=== PATIENT | female | born 1945 | race African-American/Black ===

== ENCOUNTER 2019-02-14 11:17 | Inpatient (IN) | payer MEDICARE, MEDICAID ==
[~2019-02-14] VITALS: Ht 165.1 cm; Wt 83.2 kg
[~2019-02-14 11:17] MED LIST: ACETAMINOPHEN650 M2 ORAL; CARAFATE1 GM ORAL; CEFTIN500 MG ORAL; CIPRO500 MG PO; CLONIDINE0.1 MG ORAL; CRANBERRY450 M1 ORAL; DICLOFENAC SOD100 GM TP; DILAUDID2 MG ORAL; DOCUSATE SODIU100 MG ORAL; DURAGESIC1 E3 TDERMAL; FENTANYL1 EAC5 TD; FERROUS SULFAT325 M1 ORAL; FLAGYL375 MG ORAL; GABAPENTIN100 MG ORAL; GABAPENTIN600 MG ORAL; HEPARIN SO5000 UNIT2 SUBQ; HYDRALAZINE HCL25 M1 ORAL; HYDRALAZINE HCL50 MG ORAL; HYDROMORPHO1 MG/1 M4 IVP; IMODIUM2 MG ORAL; LIDOCAINE700 M1 TP; LIDODERM700 M1 TOPIC; LIDODERM700 MG TOPIC; LOSARTAN POTAS100 MG ORAL; LOSARTAN POTASS50 MG ORAL; MAGNESIUM CITR296 M1 PO; MAGNESIUM CITR296 ML ORAL; METAMUCIL FIBE3.4 GM ORAL; MILK OF MA400 MG/51 ORAL; MIRALAX17 G1 ORAL; MIRALAX17 GM ORAL; MOVANTIK25 MG PO; MULTIVITAM9 MG/15 M1 PO; MULTIVITAM9 MG/15 M2 PO; MULTIVITAMINS1 EA13 ORAL; MULTIVITAMINS1 EACH ORAL; MYLANTA30 ML ORAL; NALOXONE H0.4 MG/12 IV; NEURONTIN300 MG ORAL; NITROFURANTOIN100 M2 ORAL; NITROFURANTOIN25 MG PO; NORCO 10-325 T1 EACH PO; NORVASC5 MG ORAL; OS-CAL 500+D C1 EAC1 ORAL; OXYCODONE-ACET1 EAC5 ORAL; PANTOPRAZOLE SO40 MG ORAL; PERCOCET 7.5-31 EACH ORAL; PRO; PROTONIX40 MG ORAL; SENOKOT-S8.6 TAB/50 ORAL
[2019-02-14 11:30] VITALS: BP 163/94
--- NOTE | 2019-02-14 11:30 | NUR ---
ED Nurse Note: pt presents to ED via EMS arrival for a witnessed syncopal episode. RN called SNF that pt came from and she states that pt is usually nonverbal, similar to how she is in ED now. per jaydon pt is less talkative and active than usual.pt has a h/o CVA x 2. VSs Addendum: 02/14/19 at 1205 by QLE syncopal episode was at 0800 this AM. pt comes via BLS from [facility]
[2019-02-14] MEDS ORDERED: HYDRALAZINE HCL50 MG ORAL (11:54)
[2019-02-14] MEDS ORDERED: MIRALAX17 G2 ORAL (11:54)
[2019-02-14] MEDS ORDERED: HYDROCODON-ACE1 EA13 ORAL (11:54)
[2019-02-14] MEDS ORDERED: SENNA8.6 M2 PO (11:54)
[2019-02-14] MEDS ORDERED: CRANBERRY450 M4 PO (11:54)
[2019-02-14] MEDS ORDERED: NORVASC5 MG ORAL (11:54)
[2019-02-14] MEDS ORDERED: COLACE100 MG ORAL (11:54)
[2019-02-14] MEDS ORDERED: ATORVASTATIN CA20 MG ORAL (11:54)
[2019-02-14] MEDS ORDERED: LACTULOSE20 GM/301 ORAL (11:54)
[2019-02-14] MEDS ORDERED: lidoderm patch 5% TOPIC (11:54)
[2019-02-14] MEDS ORDERED: ACETAMINOPHEN325 M1 ORAL (11:54)
[2019-02-14] MEDS ORDERED: FENTANYL TOPIC (11:54)
[2019-02-14] MEDS ORDERED: COZAAR50 MG ORAL (11:54)
[2019-02-14] MEDS ORDERED: ASPIR-LOW81 MG ORAL (11:54)
[2019-02-14] MEDS ORDERED: FERROUS SULFAT325 MG ORAL (11:54)
[2019-02-14] MEDS ORDERED: NEURONTIN600 MG ORAL (11:57)
[2019-02-14] MEDS ORDERED: GABAPENTIN300 MG ORAL (11:57)
[2019-02-14] MEDS ORDERED: MULTIVITAMINS1 EAC8 ORAL (11:57)
--- NOTE | 2019-02-14 12:11 | Diagnostic Imaging Report ---
Indications: Syncope, weakness, witnessed syncopal episode, altered mental status Technique: Spiral acquisitions obtained through the brain. Angled axial and coronal 5 x 5 mm slices were reconstructed. Total dose length product 1489 mGycm. CTDI vol(s) 632 mGy. Dose reduction achieved using automated exposure control Comparison: 07/25/2015 Findings: Again demonstrated is a large area of encephalomalacia involving the left frontal and anterior parietal lobes and extending into the basal ganglia. This results in marked ex vacuo dilatation of the frontal horn and anterior body of the left lateral ventricle. No acute intracranial hemorrhage or edema. No mass effect nor midline shift. Normal infante-white differentiation. Other than the ex vacuo dilatation, ventricles and extra axial CSF spaces are normal for age. The mastoids are clear. The calvarium is intact. Visualized orbits and sinuses are unremarkable. Impression: Large old left frontoparietal infarct Negative for acute intracranial bleed or mass effect Stat code stroke findings phoned to Dr. Warren in the emergency room at the time of interpretation The CT scanner at [facility] is accredited by the [employer] and the scans are performed using protocols designed to limit radiation exposure to as low as reasonably achievable to attain images of sufficient resolution adequate for diagnostic evaluation.
[2019-02-14 12:17] LABS: BASOPHILS % (AUTO) 1.2 % (0.0-2.0); EOSINOPHILS % (AUTO) 1.3 % (0.0-3.0); HEMOGLOBIN 12.6 G/DL (12.0-16.0); LYMPHOCYTES % (AUTO) 25.6 % (20.0-45.0); MEAN CORPUSCULAR VOLUME 92 FL (80-99); MONOCYTES % (AUTO) 5.4 % (1.0-10.0); NEUTROPHILS % (AUTO) 66.5 % (45.0-75.0); PLATELET COUNT 436 K/UL (150-450); RED BLOOD COUNT 4.22 M/UL (4.20-5.40); RED CELL DISTRIBUTION WIDTH 13.6 % (11.6-14.8); WHITE BLOOD COUNT 11.4 K/UL (4.8-10.8)
--- NOTE | 2019-02-14 12:20 | NUR ---
ED Nurse Note: pt has 3 lidocaine patches noted on her right leg and one 75 mcg fentanyl patch on her left chest
--- NOTE | 2019-02-14 12:22 | NUR ---
ED Nurse Note: contact infomation for pt's family: Daughter Luh: [phone] grandson Jag: [phone] grandson Shaw" [phone] grandson Jag was at bedside but has left. other family planning to be here soon
[2019-02-14 12:27] LABS: ANION GAP 7 mmol/L (5-15); BLOOD UREA NITROGEN 14 mg/dL (7-18); CALCIUM 9.5 MG/DL (8.5-10.1); CARBON DIOXIDE 28 MMOL/L (21-32); CHLORIDE 105 MMOL/L (98-107); CREATININE 0.5 MG/DL (0.55-1.30); INR 0.9 (0.9-1.1); POTASSIUM 4.5 MMOL/L (3.5-5.1); SODIUM 140 MMOL/L (136-145)
[2019-02-14 12:32] LABS: ALANINE AMINOTRANSFERASE 18 U/L (12-78); ALBUMIN 3.4 G/DL (3.4-5.0); ALBUMIN/GLOBULIN RATIO 0.9 (1.0-2.7); ALKALINE PHOSPHATASE 72 U/L (46-116); ASPARTATE AMINO TRANSFERASE 17 U/L (15-37); BILIRUBIN,TOTAL 0.5 MG/DL (0.2-1.0); CHOLESTEROL 180 MG/DL (< 200); HDL CHOLESTEROL 57 MG/DL (40-60); TRIGLYCERIDES 216 MG/DL (30-150)
[2019-02-14 13:01] LABS: APPEARANCE,URINE CLOUDY; BILIRUBIN, URINE NEGATIVE (NEGATIVE); COLOR,URINE PALE YELLOW; GLUCOSE, URINE (UA) NEGATIVE (NEGATIVE); KETONES,URINE NEGATIVE (NEGATIVE); LEUKOCYTE ESTERASE ,URINE 3+ (NEGATIVE); NITRITE,URINE NEGATIVE (NEGATIVE); PH,URINE 8 (4.5-8.0); PROTEIN,URINE 3+ (NEGATIVE); UROBILINOGEN,URINE NORMAL MG/DL (0.0-1.0)
[2019-02-14 13:30] VITALS: BP 140/82
[2019-02-14] MEDS ORDERED: Tylenol #3 tab (300mg/30mg) ORAL ONE (14:00)
--- NOTE | 2019-02-14 14:20 | NUR ---
ED Nurse Note: swabbed pt for MRSA, CRE & VRE. skin is intact. pt is stable, HR 79, SpO2: 98% on room air
--- NOTE | 2019-02-14 14:23 | Emergency Room Report ---
History of Present Illness General Chief Complaint: Syncope Source: Patient, Family Member, Medical Record Present Illness HPI 73-year-old female presents ED for evaluation. Br[facility] EMS from [facility]. Had witnessed syncopal episode today. No fall or head injury. Occurred around 8 AM today. Family at bedside states that patient is also complaining of some numbness to the left leg. History of CVA with right- sided residual deficit. Patient denies any arm numbness or weakness. Denies any chest pain or shortness of breath. Denies fevers or chills. No other aggravating relieving factors. Denies any other associated symptoms Allergies: Coded Allergies: DICLOFENAC SODIUM (Verified Allergy, Unknown, 07/27/12) PENICILLINS (Verified Allergy, Unknown, 07/15/11) Patient History Past Medical History: GERD, CVA/TIA, dementia Past Surgical History: none Pertinent Family History: none Social History: Denies: smoking, alcohol use, drug use Last Menstrual Period: na Now: No Immunizations: UTD Reviewed Nursing Documentation: PMH: Agreed; PSxH: Agreed Nursing Documentation-PMH Past Medical History: No History, Except For Hx Cardiac Problems: Yes - CHRONIC PAIN, PVD Hx Hypertension: Yes Hx Pacemaker: No Hx Asthma: Yes Hx COPD: No Hx Diabetes: No Hx Cancer: No Hx Gastrointestinal Problems: Yes - ESOPHAGIAL REFLUX, pyleonephritis Hx Neurological Problems: Yes Hx Cerebrovascular Accident: Yes Hx Transient Ischemic Attacks: No Hx Dementia: Yes - SLIGHT Hx Alzheimer's Disease: No Hx Parkinson's Disease: No Hx Meningitis: No Hx Encephalitis: No Hx Seizures: No Hx Epilepsy: No Hx Multiple Sclerosis: No Hx Cerebral Palsy: No Hx Amyotrophic Lat Sclerosis: No Hx [place] Syndrome: No Hx Paralysis: Yes - RIGHT SIDE SECONDARY TO CVA Hx Peripheral Neuropathy: No Hx Spinal Cord Injury: No Hx Head Trauma: No Hx Traumatic Brain Injury: No Hx Memory Loss: No Hx Concentration Difficulty: Yes Hx Tremors: No Hx Vertigo: No Hx Dizziness: No Hx Syncope: No Hx Headaches: Yes Hx Aphasia: Yes Hx Dysphasia: Yes Hx Numbness: Yes - RIGHT SIDE POST CVA Hx Weakness: Yes Hx Fatigue: Yes - GENERALIZED Hx Neurologic Surgery: No Hx Brain Shunt: No Review of Systems All Other Systems: negative except mentioned in HPI Physical Exam Vital Signs Date Time Temp Pulse Resp B/P (MAP) Pulse Ox O2 Delivery O2 Flow Rate FiO2 02/14/19 11:18 99.0 84 18 151/77 (101) 98 Room Air Sp02 EP Interpretation: reviewed, normal General Appearance: no apparent distress, alert Head: normocephalic, atraumatic Eyes: bilateral eye normal inspection, bilateral eye PERRL ENT: hearing grossly normal, normal pharynx, no angioedema, normal voice Neck: full range of motion, supple/symm/no masses Respiratory: chest non-tender, lungs clear, normal breath sounds, speaking full sentences Cardiovascular #1: regular rate, rhythm, no edema Cardiovascular #2: 2+ carotid (R), 2+ carotid (L), 2+ radial (R), 2+ radial (L) , 2+ dorsalis pedis (R), 2+ dorsalis pedis (L) Gastrointestinal: normal bowel sounds, non tender, soft, non-distended, no guarding, no rebound Rectal: deferred Genitourinary: normal inspection, no CVA tenderness Musculoskeletal: back normal, gait/station normal, normal range of motion Neurologic: alert, oriented x3, responsive, motor strength/tone normal, sensory intact, speech normal, other - existing R sided deficit Psychiatric: other - dementia Reflexes: 3+ bicep (R), 3+ bicep (L), 3+ tricep (R), 3+ tricep (L), 3+ knee (R) , 3+ knee (L) Skin: other - see nursing skin notes Lymphatic: no adenopathy Medical Decision Making Diagnostic Impression: Primary Impression: Syncope Qualified Codes: R55 - Syncope and collapse Additional Impression: UTI (urinary tract infection) Qualified Codes: N39.0 - Urinary tract infection, site not specified ER Course Hospital Course 73 yo F presents to ED s/p syncope episode Differential diagnoses include: CO/unstable angina, arrythmia, dehydration, CVA/ TIA Clinical course Patient placed on stretcher. on court monitor. After initial history and physical I ordered labs, EKG, IVFs, CT Brain labs reviewed- no leukocytosis, hemoglobin/hematocrit ok, electrolytes okay, troponins 0.047, UA + bacteria EKG- NSR no acute ischemic changes itnerpreted by nv CT brain- large area of encephalomalacia. no acute process There was concern whether patient may have even had a seizure according to the family. No focal deficits. No seizure history. Family was also concerned whether patient may have had a stroke. Patient has already right-sided large deficit pre-existing. Patient is able to move her left lower extremity. No deficit in her left upper extremity. I do not suspect stroke at this time. Given antibiotics. Given IV Keppra. Case discussed with Dr. Villalobos and he agreed to accept the patient to his service for further care and support I. I feel this is a highly complex case requiring extensive working including EKG/Rhythm strip, Xray/CT/US, Blood/urine lab work, repeat exams while in ED, and administration of strong opiates/narcotics for pain control, admission to hospital or close patient follow up. Diagnosis - syncope, UTI admitted to telemetry in serious condition Labs Test 02/14/19 12:00 02/14/19 12:19 White Blood Count 11.4 K/UL (4.8-10.8) Red Blood Count 4.22 M/UL (4.20-5.40) Hemoglobin 12.6 G/DL (12.0-16.0) Hematocrit 39.0 % (37.0-47.0) Mean Corpuscular Volume 92 FL (80-99) Mean Corpuscular Hemoglobin 29.7 PG (27.0-31.0) Mean Corpuscular Hemoglobin Concent 32.2 G/DL (32.0-36.0) Red Cell Distribution Width 13.6 % (11.6-14.8) Platelet Count 436 K/UL (150-450) Mean Platelet Volume 4.3 FL (6.5-10.1) Neutrophils (%) (Auto) 66.5 % (45.0-75.0) Lymphocytes (%) (Auto) 25.6 % (20.0-45.0) Monocytes (%) (Auto) 5.4 % (1.0-10.0) Eosinophils (%) (Auto) 1.3 % (0.0-3.0) Basophils (%) (Auto) 1.2 % (0.0-2.0) Prothrombin Time 9.6 SEC (9.30-11.50) Prothromb Time International Ratio 0.9 (0.9-1.1) Activated Partial Thromboplast Time 28 SEC (23-33) Sodium Level 140 MMOL/L (136-145) Potassium Level 4.5 MMOL/L (3.5-5.1) Chloride Level 105 MMOL/L (98-107) Carbon Dioxide Level 28 MMOL/L (21-32) Anion Gap 7 mmol/L (5-15) Blood Urea Nitrogen 14 mg/dL (7-18) Creatinine 0.5 MG/DL (0.55-1.30) Estimat Glomerular Filtration Rate mL/min (>60) Glucose Level 99 MG/DL (74-106) Calcium Level 9.5 MG/DL (8.5-10.1) Total Bilirubin 0.5 MG/DL (0.2-1.0) Aspartate Amino Transf (AST/SGOT) 17 U/L (15-37) Alanine Aminotransferase (ALT/SGPT) 18 U/L (12-78) Alkaline Phosphatase 72 U/L (46-116) Troponin I 0.047 ng/mL (0.000-0.056) Total Protein 7.1 G/DL (6.4-8.2) Albumin 3.4 G/DL (3.4-5.0) Globulin 3.7 g/dL Albumin/Globulin Ratio 0.9 (1.0-2.7) Triglycerides Level 216 MG/DL (30-150) Cholesterol Level 180 MG/DL (< 200) LDL Cholesterol 89 mg/dL (<100) HDL Cholesterol 57 MG/DL (40-60) Cholesterol/HDL Ratio 3.2 (3.3-4.4) Urine Color Pale yellow Urine Appearance Cloudy Urine pH 8 (4.5-8.0) Urine Specific [place] 1.010 (1.005-1.035) Urine Protein 3+ (NEGATIVE) Urine Glucose (UA) Negative (NEGATIVE) Urine Ketones Negative (NEGATIVE) Urine Blood 4+ (NEGATIVE) Urine Nitrite Negative (NEGATIVE) Urine Bilirubin Negative (NEGATIVE) Urine Urobilinogen Normal MG/DL (0.0-1.0) Urine Leukocyte Esterase 3+ (NEGATIVE) Urine RBC 5-10 /HPF (0 - 2) Urine WBC 30-40 /HPF (0 - 2) Urine Squamous Epithelial Cells Few /LPF (NONE/OCC) Urine Bacteria Many /HPF (NONE) Magnesium Level 2.1 MG/DL (1.8-2.4) Urine Opiates Screen Negative (NEGATIVE) Urine Barbiturates Screen Negative (NEGATIVE) Phencyclidine (PCP) Screen Negative (NEGATIVE) Urine Amphetamines Screen Negative (NEGATIVE) Urine Benzodiazepines Screen Negative (NEGATIVE) Urine Cocaine Screen Negative (NEGATIVE) Urine Marijuana (THC) Screen Negative (NEGATIVE) EKG Diagnostic Results Rate: normal Rhythm: NSR ST Segments: no acute changes ASA given to the pt in ED: No Rhythm Strip Diag. Results EP Interpretation: yes Rhythm: NSR, no PVC's, no ectopy CT/MRI/US Diagnostic Results CT/MRI/US Diagnostic Results : Imaging Test Ordered: CT head Impression Comparison: 07/25/2015 Findings: Again demonstrated is a large area of encephalomalacia involving the left frontal and anterior parietal lobes and extending into the basal ganglia. This results in marked ex vacuo dilatation of the frontal horn and anterior body of the left lateral ventricle. No acute intracranial hemorrhage or edema. No mass effect nor midline shift. Normal infante-white differentiation. Other than the ex vacuo dilatation, ventricles and extra axial CSF spaces are normal for age. The mastoids are clear. The calvarium is intact. Visualized orbits and sinuses are unremarkable. Impression: Large old left frontoparietal infarct Negative for acute intracranial bleed or mass effect Last Vital Signs Date Time Temp Pulse Resp B/P (MAP) Pulse Ox O2 Delivery O2 Flow Rate FiO2 02/14/19 11:18 99.0 84 18 151/77 (101) 98 Room Air Status: improved Disposition: ADMITTED INPATIENT Condition: Serious Referrals: Sami Deutsch MD (PCP) Duane Warren MD Feb 14, 2019 14:23
[2019-02-14] MEDS ORDERED: levETIRAcetam 1,000mg/NS100ml 100 ML IVPB ONE (14:30)
[2019-02-14 14:58] VITALS: BP 134/53
--- NOTE | 2019-02-14 15:00 | NUR ---
ED Nurse Note: called and gave report to COLLIN Martines
[2019-02-14 15:41] VITALS: BP 126/72
--- NOTE | 2019-02-14 15:45 | NUR ---
NURSE NOTES: Report received from COLLIN Frances. Patient transferred safely to floor from ED. Patient only has head scarf as a belonging. residential monitor applied and patient is sinus rhythm. Pt shows no signs of distress. Patient is aphasic, but oriented to self, purpose, and place. She is forgetful when it comes to time. Patient denies pain/SOB. Respirations are even and unlabored on room air. IV site is intact. Bed is at lowest position, brakes engaged, siderails x3, bed alarm on, and call light within reach. Pt is in stable condition. Spoke with Dr. Deutsch at bedside. He said he will put in orders shortly.
--- NOTE | 2019-02-14 15:52 | History & Physical ---
History and Physical History & Physicial Syncope vs Sz UTI s/p CVA right gloria Large old left frontoparietal infarct obesity chronic pain EEG Carotid duplex Echo Monitor per elias # [id number] Sami Deutsch MD Feb 14, 2019 15:52
[2019-02-14] MEDS: Docusate 100mg cap ORAL SCH (17:26)
[2019-02-14] MEDS: Nitroglycerin Patch 0.4mg TDERMAL SCH (17:26)
--- NOTE | 2019-02-14 19:12 | NUR ---
HAND-OFF: Report given to Kacey Dumont RN. Pt is in stable condition; plan of care endorsed.
--- NOTE | 2019-02-14 19:51 | NUR ---
NURSE NOTES: Received patient from COLLIN Martines, patient in stable condition, AOx1, not able to make needs known, IV site on left FA g22,asymptomatic, patent, bed low&locked, side rails upx3, call light within reach, will continue to monitor and reassess
[2019-02-14 20:00] VITALS: BP 151/76
--- NOTE | 2019-02-14 20:53 | Cardiology Progress Note ---
Assessment/Plan Assessment/Plan syncope? seizure cva hx min abn trop full note to follow orthostatic vital ek echo trop Objective Last 24 Hour Vital Signs Date Time Temp Pulse Resp B/P (MAP) Pulse Ox O2 Delivery O2 Flow Rate FiO2 02/14/19 17:26 125/81 02/14/19 16:55 Room Air 02/14/19 15:53 80 02/14/19 15:41 97.0 77 18 126/72 (90) 100 02/14/19 14:58 99.0 71 18 134/53 98 Room Air 02/14/19 13:30 79 140/82 97 02/14/19 11:30 99.0 83 163/94 98 Room Air 02/14/19 11:18 99.0 84 18 151/77 (101) 98 Room Air Laboratory Tests Test 02/14/19 12:00 02/14/19 12:19 02/14/19 12:30 White Blood Count 11.4 K/UL (4.8-10.8) H Red Blood Count 4.22 M/UL (4.20-5.40) Hemoglobin 12.6 G/DL (12.0-16.0) Hematocrit 39.0 % (37.0-47.0) Mean Corpuscular Volume 92 FL (80-99) Mean Corpuscular Hemoglobin 29.7 PG (27.0-31.0) Mean Corpuscular Hemoglobin Concent 32.2 G/DL (32.0-36.0) Red Cell Distribution Width 13.6 % (11.6-14.8) Platelet Count 436 K/UL (150-450) Mean Platelet Volume 4.3 FL (6.5-10.1) L Neutrophils (%) (Auto) 66.5 % (45.0-75.0) Lymphocytes (%) (Auto) 25.6 % (20.0-45.0) Monocytes (%) (Auto) 5.4 % (1.0-10.0) Eosinophils (%) (Auto) 1.3 % (0.0-3.0) Basophils (%) (Auto) 1.2 % (0.0-2.0) Prothrombin Time 9.6 SEC (9.30-11.50) Prothromb Time International Ratio 0.9 (0.9-1.1) Activated Partial Thromboplast Time 28 SEC (23-33) Sodium Level 140 MMOL/L (136-145) Potassium Level 4.5 MMOL/L (3.5-5.1) Chloride Level 105 MMOL/L (98-107) Carbon Dioxide Level 28 MMOL/L (21-32) Anion Gap 7 mmol/L (5-15) Blood Urea Nitrogen 14 mg/dL (7-18) Creatinine 0.5 MG/DL (0.55-1.30) L Estimat Glomerular Filtration Rate mL/min (>60) Glucose Level 99 MG/DL (74-106) Calcium Level 9.5 MG/DL (8.5-10.1) Total Bilirubin 0.5 MG/DL (0.2-1.0) Aspartate Amino Transf (AST/SGOT) 17 U/L (15-37) Alanine Aminotransferase (ALT/SGPT) 18 U/L (12-78) Alkaline Phosphatase 72 U/L (46-116) Troponin I 0.047 ng/mL (0.000-0.056) Total Protein 7.1 G/DL (6.4-8.2) Albumin 3.4 G/DL (3.4-5.0) Globulin 3.7 g/dL Albumin/Globulin Ratio 0.9 (1.0-2.7) L Triglycerides Level 216 MG/DL (30-150) H Cholesterol Level 180 MG/DL (< 200) LDL Cholesterol 89 mg/dL (<100) HDL Cholesterol 57 MG/DL (40-60) Cholesterol/HDL Ratio 3.2 (3.3-4.4) L Urine Color Pale yellow Urine Appearance Cloudy Urine pH 8 (4.5-8.0) Urine Specific [place] 1.010 (1.005-1.035) Urine Protein 3+ (NEGATIVE) H Urine Glucose (UA) Negative (NEGATIVE) Urine Ketones Negative (NEGATIVE) Urine Blood 4+ (NEGATIVE) H Urine Nitrite Negative (NEGATIVE) Urine Bilirubin Negative (NEGATIVE) Urine Urobilinogen Normal MG/DL (0.0-1.0) Urine Leukocyte Esterase 3+ (NEGATIVE) H Urine RBC 5-10 /HPF (0 - 2) H Urine WBC 30-40 /HPF (0 - 2) H Urine Squamous Epithelial Cells Few /LPF (NONE/OCC) Urine Bacteria Many /HPF (NONE) H Magnesium Level 2.1 MG/DL (1.8-2.4) Urine Opiates Screen Negative (NEGATIVE) Urine Barbiturates Screen Negative (NEGATIVE) Phencyclidine (PCP) Screen Negative (NEGATIVE) Urine Amphetamines Screen Negative (NEGATIVE) Urine Benzodiazepines Screen Negative (NEGATIVE) Urine Cocaine Screen Negative (NEGATIVE) Urine Marijuana (THC) Screen Negative (NEGATIVE) C-Reactive Protein, Quantitative 1.9 mg/dL (0.00-0.90) H Microbiology Date/Time Source Procedure Growth Status 02/14/19 14:22 Rectal Mucosa Received Neymar Simms MD Feb 14, 2019 20:53
--- NOTE | 2019-02-14 21:15 | History and Physical Report ---
DATE OF ADMISSION: 02/14/2019 HISTORY OF PRESENT ILLNESS: The patient is a resident of [facility]. She is 73-year-old female. She is known to me as I see her once a month in the facility. I received a call this morning that the patient had witnessed syncopal episode today. She was apparently unresponsive for over a minute. I received a call at 8 o'clock in the morning. The patient was summoned to come to emergency room here at [facility]. The patient is being admitted for further management. PAST MEDICAL HISTORY: Significant for previous CVA, obesity, chronic pain syndrome, right hemiplegia. The patient is essentially bedridden, also has history of cystitis, and hypertension. The patient has mild cognition decline. MEDICATIONS: List of her medication includes blood pressure medication and pain medication, please refer to the record. PHYSICAL EXAMINATION: GENERAL: When seen in room 219, the patient is afebrile, awake, dysphasic which is not new. VITAL SIGNS: Pulse rate is 77, blood pressure 122/72, respiratory rate 18. HEENT: Head is normocephalic and atraumatic. Sclerae not icteric. NECK: No thyromegaly. Rigid to all directions. HEART: Appears to be regular. LUNGS: Poor inspiratory effort. Decreased breath sounds over the bases. ABDOMEN: Obese, soft. EXTREMITIES: No edema. NEUROLOGIC: The patient has right-sided hemiparesis. Carotid auscultation, no bruit heard. LABORATORY AND DIAGNOSTIC DATA: Triglycerides of 216, the rest of the chemistry is normal. CBC normal with white blood cells of 11.4. Urine toxicology screen is negative. Urinalysis 40 wbc's, 3+ leukocyte esterase. IMPRESSION: 1. Syncope versus seizure. 2. Urinary tract infection. 3. Previous CVA with right as a result of a large old left frontoparietal infarct. 4. Obesity. 5. Chronic pain. PLAN: 1. Neurology and cardiac evaluation. 2. EEG, carotid duplex, and echo. 3. Monitor heart in tele section of the hospital. 4. Keep the blood pressure and electrolytes in check. 5. According to how the patient's condition evolves, we will make the proper changes in our future management. Sami María Elena Deutsch DR: Ruiz JOB#: [id number] CC:
[2019-02-14] MEDS: Heparin 5000 units/ml inj SUBQ SCH (21:16)
[2019-02-14] MEDS: Sennosides 8.6mg tab ORAL SCH (21:17)
[2019-02-14] MEDS: HYDROcodone/Acetamin 10/325 tab ORAL PRN (21:18)
[2019-02-14] MEDS: HydrALAZINE 25mg tab ORAL SCH (21:25)
[2019-02-14] MEDS: Lactulose 20gm/30ml UDC ORAL SCH (21:26)
[2019-02-15] VITALS: BP 111/69
[2019-02-15 04:00] VITALS: BP 133/71
[2019-02-15] MEDS: HydrALAZINE 25mg tab ORAL SCH ×3 (06:26→22:00)
[2019-02-15] MEDS: Lactulose 20gm/30ml UDC ORAL SCH ×3 (06:26→21:14)
[2019-02-15 07:39] LABS: EOSINOPHILS % (AUTO) 1.5 % (0.0-3.0); HEMATOCRIT 39.9 % (37.0-47.0); HEMOGLOBIN 12.8 G/DL (12.0-16.0); LYMPHOCYTES % (AUTO) 20.4 % (20.0-45.0); MEAN CORPUSCULAR VOLUME 93 FL (80-99); MONOCYTES % (AUTO) 6.5 % (1.0-10.0); NEUTROPHILS % (AUTO) 70.6 % (45.0-75.0); PLATELET COUNT 418 K/UL (150-450); RED BLOOD COUNT 4.29 M/UL (4.20-5.40); RED CELL DISTRIBUTION WIDTH 13.5 % (11.6-14.8); WHITE BLOOD COUNT 9.7 K/UL (4.8-10.8)
--- NOTE | 2019-02-15 07:51 | NUR ---
RADIOLOGY DEPT.,CHEST X-RAY DONE.-P.DYE
[2019-02-15 08:00] VITALS: BP 140/69
[2019-02-15 08:21] LABS: ALANINE AMINOTRANSFERASE 12 U/L (12-78); ALBUMIN 3.2 G/DL (3.4-5.0); ALBUMIN/GLOBULIN RATIO 0.7 (1.0-2.7); ALKALINE PHOSPHATASE 74 U/L (46-116); ANION GAP 8 mmol/L (5-15); ASPARTATE AMINO TRANSFERASE 12 U/L (15-37); BILIRUBIN,TOTAL 0.5 MG/DL (0.2-1.0); BLOOD UREA NITROGEN 17 mg/dL (7-18); CALCIUM 9.7 MG/DL (8.5-10.1); CARBON DIOXIDE 28 MMOL/L (21-32); CHLORIDE 105 MMOL/L (98-107); CHOLESTEROL 172 MG/DL (< 200); CREATININE 0.8 MG/DL (0.55-1.30); FERRITIN 144 NG/ML (8-388); HDL CHOLESTEROL 52 MG/DL (40-60); PHOSPHORUS 4.2 MG/DL (2.5-4.9); POTASSIUM 4.1 MMOL/L (3.5-5.1); SODIUM 141 MMOL/L (136-145); TRIGLYCERIDES 242 MG/DL (30-150)
--- NOTE | 2019-02-15 08:36 | Diagnostic Imaging Report ---
Indication: Cough Technique: One view of the chest Comparison: 07/15/2011 Findings: Atelectasis at the left lung base is again demonstrated. Lungs and pleural spaces are otherwise clear. The heart size is normal Impression: Left basilar atelectasis. No acute process otherwise
[2019-02-15 08:40] LABS: % IRON SATURATION 18 % (15-50); IRON 43 ug/dL (50-175); TOTAL IRON BINDING CAPACITY 240 ug/dL (250-450)
[2019-02-15] MEDS: Aspirin EC 81mg tab ORAL SCH (09:37)
[2019-02-15] MEDS: Docusate 100mg cap ORAL SCH ×3 (09:37→17:30)
[2019-02-15] MEDS: HYDROcodone/Acetamin 10/325 tab ORAL PRN (09:37)
[2019-02-15] MEDS: Heparin 5000 units/ml inj SUBQ SCH ×2 (09:39→21:05)
--- NOTE | 2019-02-15 10:44 | NUR ---
NURSE NOTES: Decreased Pt. O2 level to 1L. O2 sat applied saturating 95%. Will continue to monitor. Addendum: 02/15/19 at 1848 by Long Astudillo RN Wrong Pt.
--- NOTE | 2019-02-15 11:26 | Diagnostic Imaging Report ---
APPROVED REPORT CPT Code: 21074 Vascular Symptoms Syncope CVA/TIA: Comments: Technically limited and difficult study due to the depth of vessels Doppler Spectral Velocity Analysis RightLeft arteries. The Doppler spectral flow analysis indicates the degree of stenosis is minimal (10-20%) in the common carotid artery, moderate (30-50%) in the internal carotid artery, and moderate (50% - 70%) in the external carotid artery. Mid to distal internal carotid artery was not well visualized. LEFT CCA - The Doppler spectral flow analysis is abnormal (resistive) in the proximal to distal common carotid artery, suggestive of an intracranial occlusion. ICA - The Doppler spectral flow analysis is absent in the proximal to distal internal carotid artery, suggestive of internal carotid artery occlusion. The bulb area is patent. ECA-Doppler spectral flow analysis indicates the degree of stenosis is minimal (10-30%) in the external carotid artery. BILATERAL/VERTEBRAL- The vertebral arteries are not well visualized. SUBCLAVIAN- The subclavian arteries are within normal limits. COLLIN Erazo was notified of abnormal results at 0945 hours.
[2019-02-15 12:00] VITALS: BP 127/82
--- NOTE | 2019-02-15 12:20 | NUR ---
NURSE NOTES: Pt. in RA. Saturating 95%, will continue to monitor. Addendum: 02/15/19 at 1848 by Long Astudillo RN Wrong Pt.
--- NOTE | 2019-02-15 13:29 | General Progress Note ---
Assessment/Plan Problem List: (1) Syncope ICD Codes: R55 - Syncope and collapse SNOMED: 302004340 Qualifiers: Qualified Codes: R55 - Syncope and collapse (2) UTI (urinary tract infection) ICD Codes: N39.0 - Urinary tract infection, site not specified SNOMED: 10139739 Qualifiers: Qualified Codes: N39.0 - Urinary tract infection, site not specified (3) chronic abdominal pain (4) CVA (cerebral vascular accident) ICD Codes: I63.9 - Cerebral infarction, unspecified SNOMED: 770004284 (5) Cystitis Status Narrative 1. Syncope versus seizure. 2. Urinary tract infection. 3. Previous CVA with right glorai , as a result of a large old left frontoparietal infarct. 4. Obesity. 5. Chronic pain. Assessment/Plan: Neuro eval EEG Levaquin pending cultures per orders adjust pain meds Subjective ROS Limited/Unobtainable: No Constitutional: Reports: malaise Allergies: Coded Allergies: DICLOFENAC SODIUM (Verified Allergy, Unknown, 07/27/12) PENICILLINS (Verified Allergy, Unknown, 07/15/11) Objective Last 24 Hour Vital Signs Date Time Temp Pulse Resp B/P (MAP) Pulse Ox O2 Delivery O2 Flow Rate FiO2 02/15/19 12:00 97.3 88 19 127/82 (97) 98 02/15/19 09:37 78 140/69 02/15/19 09:00 Room Air 02/15/19 08:00 83 02/15/19 08:00 97.5 78 16 140/69 (92) 95 02/15/19 06:26 133/71 02/15/19 04:00 97.5 73 16 133/71 (91) 96 02/15/19 04:00 67 02/15/19 00:00 75 02/15/19 00:00 97.1 69 16 111/69 (83) 95 02/14/19 21:25 151/76 02/14/19 21:00 Room Air 02/14/19 20:00 81 02/14/19 20:00 96.6 89 16 151/76 (101) 100 02/14/19 17:26 125/81 02/14/19 16:55 Room Air 02/14/19 15:53 80 02/14/19 15:41 97.0 77 18 126/72 (90) 100 02/14/19 14:58 99.0 71 18 134/53 98 Room Air 02/14/19 13:30 79 140/82 97 Intake and Output 02/14/19 02/15/19 19:00 07:00 Intake Total 250 ml 250 ml Output Total 110 ml 410 ml Balance 140 ml -160 ml Intake Oral 250 ml 250 ml Output Urine Total 110 ml 410 ml # Voids 1 1 # Bowel Movements 1 Laboratory Tests 02/15/19 07:11: White Blood Count 9.7, Red Blood Count 4.29, Hemoglobin 12.8, Hematocrit 39.9, Mean Corpuscular Volume 93, Mean Corpuscular Hemoglobin 29.8, Mean Corpuscular Hemoglobin Concent 32.1, Red Cell Distribution Width 13.5, Platelet Count 418, Mean Platelet Volume 4.7L, Neutrophils (%) (Auto) 70.6, Lymphocytes (%) (Auto) 20.4, Monocytes (%) (Auto) 6.5, Eosinophils (%) (Auto) 1.5, Basophils (%) (Auto ) 1.0, Sodium Level 141, Potassium Level 4.1, Chloride Level 105, Carbon Dioxide Level 28, Anion Gap 8, Blood Urea Nitrogen 17, Creatinine 0.8#, Estimat Glomerular Filtration Rate , Glucose Level 90, Hemoglobin A1c 5.8, Uric Acid 3.7 , Calcium Level 9.7, Phosphorus Level 4.2, Magnesium Level 2.3, Iron Level 43L, Total Iron Binding Capacity 240L, Percent Iron Saturation 18, Unsaturated Iron Binding 197, Ferritin 144, Total Bilirubin 0.5, Aspartate Amino Transf (AST/SGOT ) 12L, Alanine Aminotransferase (ALT/SGPT) 12, Alkaline Phosphatase 74, Troponin I 0.030, Total Protein 7.8, Albumin 3.2L, Globulin 4.6, Albumin/ Globulin Ratio 0.7L, Triglycerides Level 242H, Cholesterol Level 172, LDL Cholesterol 86, HDL Cholesterol 52, Cholesterol/HDL Ratio 3.3, Vitamin B12 Level 394, Folate 19.7, Thyroid Stimulating Hormone (TSH) 0.645 Height (Feet): 5 Height (Inches): 5.00 Weight (Pounds): 175 General Appearance: no apparent distress Cardiovascular: normal peripheral pulses Respiratory/Chest: decreased breath sounds Abdomen: soft Neurologic: other - right gloria- dysphasic Sami Deutsch MD Feb 15, 2019 13:29
--- NOTE | 2019-02-15 14:42 | NUR ---
REFERRED FOR SWALLOW EVAL BY DR COOK, SEE FULL REPORT. DYSPHAGIA RISK FACTORS FOR THIS 73 Y.O.F.: ACUTE SYNCOPE AND LOC, RECENT CXR LEFT BASILAR ATELECTASIS NEG ACUTE PER EEG 02/14/29 ABNORMAL WITH L FOCAL SHARP DISCHARGE WITH L FOCAL SLOWING NO CLINICAL SIGNS. 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 DATE), DYSPHAGIA (08/13/12 REPORT ABOUT SILENT ASPIRATION AND DYSPHAGIA), CHRONIC PAIN SYNDROME, GERD, GASTRITIS, HTN, POLST NOT COMPLETED REGARDING TUBE FEEDING PREFERENCES. AT [facility] ON A REGULAR TEXTURE DIET AND THIN LIQUIDS (CITLALY CCHO) AT [facility] [place] LAST ON REG TEXTURE/LIQUIDS (CARDIAC) CURRENTLY ON A CARDIAC SOFT CHEW DIET AND THIN LIQUIDS WITH 0/50/100% INTAKE. PER RN SOSNA PT ABLE TO TAKE LARGE PILL WHEN CUT IN HALF WITH APPLESAUCE (PT PREFERENCE NOT TO CRUSH MEDS) W/O OVERT ASPIRATION. ACID CUTTER RAJNI NOT AVAIL REGARDING MEAL TODAY TIME IT TOOK TO CONSUME AND IF HAD PROBLEMS. PER RN, NO PROBLEMS WITH SPAGHETTI INTAKE. PATIENT ALERT BUT HAS UNINTELLIGIBLE SPEECH FROM [employer] APHASIA ? ALSO IF HAS AN APRAXIA ALSO (WILL TEST FURTHER). FOLLOWED SOME ORAL COMMANDS AND APPEARED TO UNDERSTAND SOME SIMPLE SENTENCES WITH RN. INITIAL IMPRESSIONS: S/S OF AT LEAST A MILD OROPHARYNGEAL DYSPHAGIA WITH MILD INCREASE IN TRANSIT TIMES. GIVEN THIN LIQUIDS VIA STRAW SEQUENTIAL SIPS, NEEDED TO STOP AFTER ONE SIP AND SWALLOW SLOWLY (2X SEEM EFFORTFUL), NO ORAL RESIDUE NOR OVERT ASP GIVEN PUREED TSP, SLOWER TRANSIT (5 SECONDS), FAIR HYOLARYNGEAL EXCURSIONS DOUBLE EFFORTFUL SWALLOW NOTED, NO ORAL RESIDUE NOR OVERT ASPIRATION. GIVEN MASTICATED SOLID (1/2 CRACKER W/O UPPER TEETH AND NO LOWER MOLARS) CHEWED FOR 8 SECONDS AND USED LIQUID WASH FOR MILD RESIDUE ON TONGUE, NO OVERT ASPIRATION HAS SILENT ASPIRATION RISK RECOMMENDATIONS: CONSIDER MOD BARIUM SWALLOW STUDY (MBSS IP OR OP IF DC) TO FURTHER ASSESS SWALLOW, DETERMINE SILENT ASP RISK AND ATTEMPT TRIAL TX IF PO CONTINUES FOR QUALITY OF LIFE, CONTINUE WITH SOFT CHEW DIET WITH THIN LIQUIDS WITH POSTED ASP/REFLUX PRECAUTIONS AND ASSIST WITH MEALS (HAVE ACID CUTTER CUT FOOD AND SUPERVISE) CONSIDER ADDING CCHO TO CARDIAC DIET (AT SNF ON CITLALY AND CCHO DIET) UNTIL DIETITIAN MAKES HER RECOMMENDATIONS. SKILLED DYSPHAGIA MANAGEMENT AND TX AND COG-COM EVAL/TX FOR COM TIPS (APHASIA) EDUCATED/TRAINED STAFF IN POSTED PRECAUTIONS. Addendum: 02/15/19 at 1451 by HENRIK STEEL ROLL RECLAIMER PRIOR MOD BARIUM SWALLOW STUDY AT [facility] [place] 08/13/12 (? WHEN SHE HAD STROKE): ONLY SAW RADIOLOGY REPORT WHICH HIGHLIGHTED DYSPHAGIA IN THE OROPHARYNGEAL PHASES BUT NO ASPIRATION. HAD LARYNGEAL PENETRATION WITH THIN LIQUID ONLY. HAD MILD ESOPHAGEAL POOLING WITH REVERSED PERISTALSIS.
[2019-02-15] MEDS: HYDROcodone/Acetamin 7.5/325 tab ORAL PRN (15:21)
[2019-02-15] MEDS: Nitroglycerin Patch 0.4mg TDERMAL SCH (15:22)
--- NOTE | 2019-02-15 15:45 | NUR ---
CASE MANAGEMENT:REVIEW 73 YR OLD FEMALE BIBA FROM [facility] CC: SYNCOPE AND LEG NUMBNESS SI: SYNCOPE 98.9 84 18 151/77 98% ON RA WBC+11.4 IS: IV KEPPRA X1 TYLENOL PO X` IV LEVAQUIN X1 CT HEAD : TO TELEMETRY UNIT DCP: RETURN TO SNF
[2019-02-15 16:00] VITALS: BP 140/74
--- NOTE | 2019-02-15 16:23 | Cardiology Progress Note ---
Assessment/Plan Assessment/Plan syncope? seizure cva hx min abn trop trop neg telel neg ekg will be reordered will review echo unless echo abn or repeat ekg abn i would be more suspicious of a neuro cause of loc rxn of uti per dr payan [id number] Subjective Cardiovascular: Denies: chest pain, irregular heart rate, lightheadedness, palpitations Respiratory: Denies: shortness of breath Gastrointestinal/Abdominal: Reports: abdominal pain Genitourinary: Denies: burning Objective Last 24 Hour Vital Signs Date Time Temp Pulse Resp B/P (MAP) Pulse Ox O2 Delivery O2 Flow Rate FiO2 02/15/19 15:22 127/82 02/15/19 15:00 127/82 02/15/19 12:00 97.3 88 19 127/82 (97) 98 02/15/19 12:00 81 02/15/19 09:37 78 140/69 02/15/19 09:00 Room Air 02/15/19 08:00 83 02/15/19 08:00 97.5 78 16 140/69 (92) 95 02/15/19 06:26 133/71 02/15/19 04:00 97.5 73 16 133/71 (91) 96 02/15/19 04:00 67 02/15/19 00:00 75 02/15/19 00:00 97.1 69 16 111/69 (83) 95 02/14/19 21:25 151/76 02/14/19 21:00 Room Air 02/14/19 20:00 81 02/14/19 20:00 96.6 89 16 151/76 (101) 100 02/14/19 17:26 125/81 02/14/19 16:55 Room Air General Appearance: no apparent distress, alert Neck: supple Cardiovascular: normal rate Respiratory/Chest: lungs clear Abdomen: normal bowel sounds, non tender, soft Extremities: no swelling Intake and Output 02/14/19 02/15/19 19:00 07:00 Intake Total 250 ml 250 ml Output Total 110 ml 410 ml Balance 140 ml -160 ml Intake Oral 250 ml 250 ml Output Urine Total 110 ml 410 ml # Voids 1 1 # Bowel Movements 1 Laboratory Tests Test 02/15/19 07:11 White Blood Count 9.7 K/UL (4.8-10.8) Red Blood Count 4.29 M/UL (4.20-5.40) Hemoglobin 12.8 G/DL (12.0-16.0) Hematocrit 39.9 % (37.0-47.0) Mean Corpuscular Volume 93 FL (80-99) Mean Corpuscular Hemoglobin 29.8 PG (27.0-31.0) Mean Corpuscular Hemoglobin Concent 32.1 G/DL (32.0-36.0) Red Cell Distribution Width 13.5 % (11.6-14.8) Platelet Count 418 K/UL (150-450) Mean Platelet Volume 4.7 FL (6.5-10.1) L Neutrophils (%) (Auto) 70.6 % (45.0-75.0) Lymphocytes (%) (Auto) 20.4 % (20.0-45.0) Monocytes (%) (Auto) 6.5 % (1.0-10.0) Eosinophils (%) (Auto) 1.5 % (0.0-3.0) Basophils (%) (Auto) 1.0 % (0.0-2.0) Sodium Level 141 MMOL/L (136-145) Potassium Level 4.1 MMOL/L (3.5-5.1) Chloride Level 105 MMOL/L (98-107) Carbon Dioxide Level 28 MMOL/L (21-32) Anion Gap 8 mmol/L (5-15) Blood Urea Nitrogen 17 mg/dL (7-18) Creatinine 0.8 MG/DL (0.55-1.30) # Estimat Glomerular Filtration Rate mL/min (>60) Glucose Level 90 MG/DL (74-106) Hemoglobin A1c 5.8 % (4.3-6.0) Uric Acid 3.7 MG/DL (2.6-7.2) Calcium Level 9.7 MG/DL (8.5-10.1) Phosphorus Level 4.2 MG/DL (2.5-4.9) Magnesium Level 2.3 MG/DL (1.8-2.4) Iron Level 43 ug/dL (50-175) L Total Iron Binding Capacity 240 ug/dL (250-450) L Percent Iron Saturation 18 % (15-50) Unsaturated Iron Binding 197 ug/dL (112-346) Ferritin 144 NG/ML (8-388) Total Bilirubin 0.5 MG/DL (0.2-1.0) Aspartate Amino Transf (AST/SGOT) 12 U/L (15-37) L Alanine Aminotransferase (ALT/SGPT) 12 U/L (12-78) Alkaline Phosphatase 74 U/L (46-116) Troponin I 0.030 ng/mL (0.000-0.056) Total Protein 7.8 G/DL (6.4-8.2) Albumin 3.2 G/DL (3.4-5.0) L Globulin 4.6 g/dL Albumin/Globulin Ratio 0.7 (1.0-2.7) L Triglycerides Level 242 MG/DL (30-150) H Cholesterol Level 172 MG/DL (< 200) LDL Cholesterol 86 mg/dL (<100) HDL Cholesterol 52 MG/DL (40-60) Cholesterol/HDL Ratio 3.3 (3.3-4.4) Vitamin B12 Level 394 PG/ML (193-986) Folate 19.7 NG/ML (8.6-58.9) Thyroid Stimulating Hormone (TSH) 0.645 uiU/mL (0.358-3.740) Microbiology Date/Time Source Procedure Growth Status 02/14/19 12:19 Urine,Clean Catch Urine Culture - Preliminary Resulted 02/14/19 14:22 Rectal Mucosa Received Neymar Simms MD Feb 15, 2019 16:23
--- NOTE | 2019-02-15 17:45 | Cardiology Report ---
APPROVED REPORT EXAM: Two-dimensional and M-mode echocardiogram with Doppler and color Doppler. M-Mode DIMENSIONS IVSd1.3 (0.7-1.1cm) LVDd3.6 (3.5-5.6cm) PWd1.6 (0.7-1.1cm) IVSs1.5 cm LVDs2.4 (2.5-4.0cm) PWs0.9 cm Other Information Quality : Limited Normal left ventricular chamber size, systolic function and wall motion to extent visualized. Left ventricular ejection fraction estimated to be 60 %. All other cardiac chamber sizes are within normal limits. Thickened mitral valve leaflets with normal excursion. Valvular study not completed . Normal pulmonic valve structure. Subcostal views not obtainble . A color flow and spectral Doppler study was performed and revealed: Mitral diastolic velocities suggest reduced left ventricular relaxation c/w mild LV diastolic dysfunction (Grade I ) Trace tricuspid regurgitation.
--- NOTE | 2019-02-15 17:47 | Cardiology Report ---
APPROVED REPORT EKG Measurement Heart [id number] Normal sinus rhythm Normal ECG
--- NOTE | 2019-02-15 17:52 | Cardiology Report ---
APPROVED REPORT EKG Measurement Heart [id number] Normal sinus rhythm Normal ECG
--- NOTE | 2019-02-15 18:50 | Consultation ---
Consult Note Consult Note NEUROLOGY CONSULTATION: Full note dictated #[id number] 73-year-old, right-handed, black lady, with past history of hypertension, obesity, right hemiplegia and aphasia related to a stroke, and a chronic pain syndrome. She lives at a fci where on 02/14/2019 she was noted to have an episode of loss of consciousness. The episode lasted approximately a minute. The exact details are unknown to us. This consultation was requested to evaluate the patient for episode of loss of consciousness. Unfortunately the exact details of the episode are unknown to us however no abnormal movements were described. ON EXAM: Awake and alert Oriented to self only Severe anterior greater than posterior aphasia. Right VII central facial paresis Decreased tone in right upper extremity Right-sided plegia Left lower extremity significant paresis Right body dysesthetic Reflexes: 0 at the biceps triceps brachioradialis knees and ankles. Plantar response flexor on left and mute on right [id number] normal on left side unable to perform on right side. Unable to perform [id number] bilaterally Stance and gait could not be tested IMPRESSION: Poorly described episode of loss of consciousness. CT of brain reveals old left frontotemporal parietal infarct EEG reveals left greater than right hemispheric dysfunction and in addition focal dysfunction involving the left temporal region. Laboratory data reveal a urinary tract infection and a low B12 level. 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 Recommendations: Continue present management. Aggressive treatment of infectious process. Vitamin B12 1000 mcg subcutaneously daily for the next 3 days and then monthly. CT angiogram of external and internal cerebral blood vessels. If the patient does not fact have the moderate right internal carotid artery stenosis with an occluded left internal carotid artery then a vascular surgery evaluation would be appropriate. Observe closely. Chuy Feliz M.D., M.S.P.H. Chuy Feliz MD Feb 15, 2019 18:50
[2019-02-15] MEDS ORDERED: Omnipaue 350mg/ml 100ml vial INJ PRN ×2 (19:00)
--- NOTE | 2019-02-15 19:11 | NUR ---
HAND-OFF: Report given to COLLIN Leigh. Pt. in stable condition. Plan of care endorsed.
--- NOTE | 2019-02-15 19:15 | NUR ---
Received patient from COLLIN Alves, stable condition, laying comfortably in bed, denies pain, IV site patent, asymptomatic, Left FA g 22, bed low&locked, side rail upx3, call light within reach, will continue to monitor and reassess
[2019-02-15] MEDS: Albuterol ud Inhalation HHN SCH (19:53)
[2019-02-15 20:00] VITALS: BP 116/73
[2019-02-15] MEDS: Vitamin B12 1000mcg/ml Inj IM SCH (21:04)
[2019-02-15] MEDS: Sennosides 8.6mg tab ORAL SCH (21:04)
[2019-02-16] VITALS: BP 137/66
--- NOTE | 2019-02-16 00:15 | Electroencephalogram ---
DATE OF PROCEDURE: 02/14/2019 REQUESTING PHYSICIAN: Sami Deutsch M.D. READING PHYSICIAN: Chuy Feliz M.D. PROCEDURE PERFORMED: Electroencephalogram. HISTORY: This EEG was performed on a 73-year-old lady with history of cerebrovascular disease with right hemiparesis, who had an episode of loss of consciousness. The purpose of this EEG was to evaluate the patient for ongoing ictal or interictal phenomena. TECHNICAL NOTE: This EEG was performed on a [employer] with electrodes placed on the scalp according to the International 10-20 system. Erwyu-hh-pohhi and aaysu-oi-ktf montages were used. The EEG was technically satisfactory and was performed in the awake, drowsy, and sleep states. OBSERVATIONS: In the best awake state, the background activity consisted of 5-6 Hz theta activity over the left hemisphere and 6.5-7 Hz theta activity over the right hemisphere. Left temporal polymorphic delta activity was also noted. Drowsiness was characterized by slower frequencies in the 4-5 Hz theta range with continued left temporal polymorphic delta activity. Stage II sleep was characterized by further slowing of the background in the delta and theta range, the presence of a few interspersed vertex waves, and 12 Hz sleep spindles. No epileptiform discharges were seen. IMPRESSION: This is an abnormal EEG characterized by, 1. Slowing of the background in the 5-6 Hz theta range over the left hemisphere and 6.5- 7 Hz theta range over the right hemisphere in the reportedly awake state. 2. The presence of left temporal polymorphic delta activity seen throughout the tracing. COMMENT: This study is consistent with: 1. Generalized cerebral dysfunction of a moderate nature compatible with moderate encephalopathic process. 2. Left greater than right cerebral dysfunction. 3. Focal dysfunction involving the left temporal region. Clinical correlation is recommended. Chuy Feliz M.D., M.S.P.H. DR: EUNICE JOB#: [id number] MTDD
--- NOTE | 2019-02-16 00:15 | Consultation ---
DATE OF CONSULTATION: 02/15/2019 CARDIOLOGY CONSULTATION CONSULTING PHYSICIAN: Neymar Simms M.D. REFERRING PHYSICIAN: Sami Deutsch M.D. REASON FOR REFERRAL: Questionable syncope versus seizure. HISTORY OF PRESENT ILLNESS: This is a pleasant 73-year-old female, who unfortunately is not completely verbal although she is able to answer some of questions with yes and no questions. She is not able to provide meaningful history. The chart indicates that Dr. Deutsch received a call from the facility where the patient was a syncopal episode. She apparently was unresponsive for over a minute. The patient was summoned to come to the emergency room here at [facility]. She is being admitted for further evaluation and management. According to the emergency room physician's data, the patient was brought in by the emergency medical services. Family apparently had told the emergency room physician that the patient is complaining of some numbness in her left leg. She does have a history of CVA and right-sided residual deficit. The patient denies any numbness or weakness and denies any chest pain or shortness of breath. No other issues were noted. The patient was brought to the emergency room and was admitted to the hospital. The concern about possibility of a seizure was raised by the family and also a stroke, but the emergency physician did not feel that the patient was having any neurological deficits. PAST MEDICAL HISTORY: Positive for history of cystitis and pyelonephritis, history of stroke, fecal impaction, systemic hypertension, previously there is a chronic pain syndrome, history of hemiparesis, aphasia, systemic hypertension, duodenal AV malformation, hiatal hernia, gastroesophageal reflux disease, gastric ulcer, gastric bleeding, history of asthma, degenerative disc disease, history of L4-L5 laminectomy as well as SIRS. ALLERGIES: She is allergic to diclofenac and penicillin, but apparently was able to tolerate Rocephin. SOCIAL HISTORY: Negative for smoking, alcohol, or drugs. REVIEW OF SYSTEMS: GASTROINTESTINAL: On questioning, the patient denies any abdominal pain, nausea, vomiting, diarrhea, or constipation. GENITOURINARY: She may have some discomfort on urination. PULMONARY: Does have a cough. No sputum production. CARDIAC: Denies any chest pain. Denies any shortness of breath. She is not ambulatory. Denies any palpitations. Denies any dizziness. PHYSICAL EXAMINATION: GENERAL: Shows to be elderly female, who appears to be aphasic. NECK: Supple. No jugular venous distention. The right arm appears to be weak. LUNGS: Posteriorly appear to be clear to auscultation. CARDIAC: Regular rate and rhythm. No heaves or thrills noted. ABDOMEN: Soft and nontender. Positive bowel sounds. EXTREMITIES: There is no edema. She has Lidoderm patches on several parts of the right leg. LABORATORY DATA: Her white count is 9.7, hemoglobin 12.8, and platelet count of 418,000. Sodium is 141, potassium 4.1, chloride 105, bicarb 28, BUN 17, creatinine 0.8, and glucose of 90. A1c of 5.8. Iron of 43 with 18% saturation. Liver function tests are normal. Troponin 0.047 and 0.030, both of which were negative. Her total protein is 7.8. Albumin of 3.2. Vitamin B12 of 394. TSH is 0.64. Her INR is 0.9 and a PTT of 28. Urine drug screen was negative. Urinalysis shows 30 to 40 wbc's. The preliminary urine culture is pending at this time . The patient's EKG, normal sinus rhythm, normal axis, really no significant ST or T-wave abnormalities. She has had an EKG that results are pending at this time. 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 There is some disease that is on the left. The right is 30% to 50%, internal carotid artery 57%, and external carotid artery stenosis. ASSESSMENT: 1. Chest x-ray shows left basilar atelectasis, no acute process. A CT scan of the head shows large old left frontoparietal infarct. Negative for acute intracranial bleed or mass effect. 2. Acute alteration of wakefulness, questionable syncope versus seizure. 3. Urinary tract infection. 4. Prior history of CVA. 5. Obesity. 6. Chronic back pain. PLAN: Dr. Deutsch, this patient was seen in cardiac consultation. The patient is somewhat aphasic. She is able to tell that she does not have any chest pain or shortness of breath although I am not sure how much of the information she provides me is trustable. Nevertheless, there are no electrocardiographic changes on the Holter and the telemetry unit so far, has had no evidence of arrhythmias and in light of the fact that the patient had a prior CVA that is large, there is certainly the possibility of a seizure disorder may be of a possibility too. She is not able to stand up for her orthostatic vitals check. However, her vital signs even since admission have not been documented to be low at all. Her initial blood pressure was 151/77, indicating that it is less likely that this is hypotensive response or syncopal episode. She has not been documented to have any bradyarrhythmias either. Her lowest heart rate has been documented as approximately 67. An echocardiogram has been ordered and results are pending at this time. Cardiac enzymes have been negative and occasionally, on two separate occasions EKG will be reordered. However, echocardiographic abnormalities are noted. I probably would favor neurological cause for her altered mentation rather than syncope. Neymar Simms M.D. DR: LOTTIE JOB#: [id number] CC:
--- NOTE | 2019-02-16 01:15 | Consultation ---
DATE OF CONSULTATION: 02/15/2019 NEUROLOGY CONSULTATION CONSULTING PHYSICIAN: Chuy Feliz M.D. REQUESTING PHYSICIAN: Sami Deutsch M.D. HISTORY: Stefanie Key is a 73-year-old, right-handed, black lady, who does have a past history of hypertension, obesity, right hemiplegia and aphasia, related to a stroke, and a chronic pain syndrome involving the right body. She lives at a fpc where on February 14, 2019, she was noted to have an episode of loss of consciousness. It was felt that she was unresponsive for approximately a minute, the exact details however are unknown to us. She was sent to [facility] for a possible syncopal event. This consultation was requested to evaluate the patient for her episode of loss of consciousness. Unfortunately, the patient is aphasic and could not give any further history and in addition, no further details of the episode are available on the patient's chart. However, there is no mention of any abnormal movements or seizure-like phenomena associated with the event. At this point in time, the patient feels relatively well. PAST MEDICAL HISTORY: Significant for hypertension, obesity, right hemiplegia and aphasia related to a stroke, and chronic pain syndrome. FAMILY HISTORY: Unavailable. PERSONAL HISTORY: Home: She lives in a fpc. Work: She is unemployed. Habits: None at this point in time. MEDICATIONS: Albuterol, levofloxacin, [place] p.r.n., Norvasc, aspirin 81 mg daily, hydralazine, lactulose, atorvastatin, gabapentin 600 mg at bedtime, Senokot, heparin for DVT prophylaxis, Keppra 500 mg q.12 hours, Colace 3 times a day, gabapentin 300 mg 3 times a day, and nitroglycerin transdermal patch. PHYSICAL EXAMINATION: GENERAL: She is a well-developed, well-nourished, obese black lady, lying in bed, in no acute distress. VITAL SIGNS: Pulse 86/minute, blood pressure 140/74 mmHg, respirations 18/minute, temperature 97.3 degrees Fahrenheit. HEAD: Normocephalic and atraumatic. EENT: Examination benign. NECK: No neck rigidity was observed. NEUROLOGICAL EXAMINATION: MENTAL STATUS EXAMINATION: She was awake and alert. She was oriented to self only. She was severely aphasic making further mental status testing impossible. SPEECH: She said a few words. LANGUAGE: She had an anterior greater than posterior aphasia. CRANIAL NERVE EXAMINATION: II: She was able to count fingers. III, IV & : The external ocular movements were full and the pupils 3 mm in diameter, equal, round, regular, and reactive to light. V: She had normal facial sensations, and the temporales, masseters, and pterygoids functioned normally. VII: She had a right seventh central facial paresis. VIII: She was able to hear and had no nystagmus. IX: The palate moved symmetrically on phonation. X: She had no hoarseness of voice. XI: The sternocleidomastoids and trapezii functioned normally. XII: The tongue was in the midline without any fasciculations or atrophy. MOTOR SYSTEM: The tone was diminished in the right upper extremity. Examination of muscle mass revealed wasting on the right side. Examination of power revealed G 0/5 power in the right upper and lower extremities, G 5-/5 power in the left upper extremity, and G 4/5 power in the left lower extremity. SENSORY EXAMINATION: Sensations could not be tested accurately, but she complained of a dysesthetic feeling over entire right body. REFLEXES: 0 at the biceps, triceps, brachioradialis, knees, and ankles. The plantar response was flexor on the left and mute on the right. COORDINATION: Dgefqv-gv-jyrz testing was normal on the left side, but she was unable to perform on the right side. She was unable to perform ylzd-rz-foqm testing bilaterally. STANCE & GAIT: Could not be tested. DIAGNOSTIC IMPRESSION: 1. Ms. Stefanie Key is a 73-year-old, right-handed, black lady, who does have a past history of hypertension, obesity, right hemiplegia, and aphasia related to a stroke, and a chronic pain syndrome. She had an episode of loss of consciousness at her fpc on February 14, 2019 and was thus brought to the hospital. 2. On neurological examination, at this time, she is severely aphasic making further mental status testing quite impossible. She also has a right seventh central facial paresis, diminished tone in the right upper extremity, right-sided plegia, left lower extremity paresis, right body dysesthetic feelings, global areflexia, mute plantar response on the right side, inability to perform rkwaig-am-jkoz testing on the right side, inability to perform lsgc-aj-hiii testing bilaterally, and an inability to stand and walk. 3. 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 4. An EEG performed on February 14, 2019 reveals left greater than right hemispheric dysfunction and in addition, focal dysfunction involving the left temporal region. 5. The Carotid duplex reveals 50-70 percent stenosis of the right internal carotid artery and an occluded left internal carotid artery. 6. Laboratory data obtained thus far revealed that when she came in her WBC count was elevated to 11,400 with a relatively normal CBC otherwise. The chemistry panel revealed a relatively normal chemistry panel. She has since had a vitamin B12 level, performed, which is low at 394, normal folate, and normal TSH. Her urinalysis revealed 3+ leukocyte esterase, 5-10 red blood cells, and 30-40 white blood cells per high-power field. 7. 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 8. The patient is on Keppra for reasons that are unknown to us. There is no mention of a prior history of seizures on the chart. 9. The patient does have a significant right internal carotid artery stenosis in addition to the left internal carotid artery occlusion. If this is in fact the case, she should be evaluated by a vascular surgeon. RECOMMENDATIONS: 1. Agree with management thus far. 2. Aggressive treatment of infectious process. 3. The patient should be given vitamin B12 1000 mcg subcutaneously daily for the next 3 days and then monthly. 4. A CT angiogram of the external and internal cerebral blood vessels should be obtained. If the patient does in fact have a moderate right internal carotid artery stenosis close to 70% with an occluded left internal carotid artery then a Vascular Surgery evaluation would be appropriate. 5. The patient should be observed closely and depending on how she fares, further recommendations will be given. Thank you for entrusting me with the care of Ms. Key. I shall follow her with you. Chuy Feliz M.D., M.S.P.H. DR: EUNICE JOB#: [id number] MTDD
[2019-02-16] MEDS: Albuterol ud Inhalation HHN SCH ×4 (01:36→19:00)
[2019-02-16 04:00] VITALS: BP 152/91
[2019-02-16] MEDS: Lactulose 20gm/30ml UDC ORAL SCH ×4 (05:48→21:16)
[2019-02-16] MEDS: HydrALAZINE 25mg tab ORAL SCH ×3 (05:48→21:08)
--- NOTE | 2019-02-16 07:28 | NUR ---
NURSE NOTES: Report received from COLLIN Leigh. Pt. Awake, positioned for comfort to have breakfast. Daughter at bedside. Pt. In RA, denies SOB, pain or discomfort. L FA 22g IV intact. Bed on lowest position, side rails upx2, brakes engaged, alarm on. Call light within easy reach.
--- NOTE | 2019-02-16 07:33 | NUR ---
HAND-OFF: Report given to COLLIN Alves, patient in stable condition, plan of care endorsed.
[2019-02-16 08:00] VITALS: BP 136/59
[2019-02-16] MEDS: Aspirin EC 81mg tab ORAL SCH (08:57)
[2019-02-16] MEDS: Docusate 100mg cap ORAL SCH ×3 (08:57→17:41)
[2019-02-16] MEDS: Heparin 5000 units/ml inj SUBQ SCH ×2 (08:59→21:00)
[2019-02-16] MEDS ORDERED: Sorbitol Solution UD 30ml ORAL SCH (10:30)
--- NOTE | 2019-02-16 10:49 | General Progress Note ---
Assessment/Plan Problem List: (1) Syncope ICD Codes: R55 - Syncope and collapse SNOMED: 707037998 Qualifiers: Qualified Codes: R55 - Syncope and collapse (2) UTI (urinary tract infection) ICD Codes: N39.0 - Urinary tract infection, site not specified SNOMED: 78644055 Qualifiers: Qualified Codes: N39.0 - Urinary tract infection, site not specified (3) chronic abdominal pain (4) CVA (cerebral vascular accident) ICD Codes: I63.9 - Cerebral infarction, unspecified SNOMED: 445356276 (5) Cystitis (6) Fecal impaction ICD Codes: K56.41 - Fecal impaction SNOMED: 98285399 Status: stable Assessment/Plan: Neuro eval appretiated Due CTA carotids EEG Levaquin pending cultures recheck Ua and C/S per orders adjust pain meds Subjective Date patient seen: Feb 16, 2019 Time patient seen: 10:00 ROS Limited/Unobtainable: Yes Allergies: Coded Allergies: DICLOFENAC SODIUM (Verified Allergy, Unknown, 07/27/12) PENICILLINS (Verified Allergy, Unknown, 07/15/11) Objective Last 24 Hour Vital Signs Date Time Temp Pulse Resp B/P (MAP) Pulse Ox O2 Delivery O2 Flow Rate FiO2 02/16/19 09:00 Room Air 02/16/19 08:58 83 136/59 02/16/19 08:00 98.1 83 18 136/59 (84) 97 02/16/19 08:00 88 02/16/19 07:38 84 18 98 Room Air 21 83 18 96 02/16/19 05:48 152/91 02/16/19 04:01 86 02/16/19 04:00 97.8 93 18 152/91 (111) 95 02/16/19 01:36 84 18 98 Room Air 21 81 18 95 02/16/19 00:00 76 02/16/19 00:00 97.9 79 18 137/66 (89) 97 02/15/19 22:00 117/80 02/15/19 21:00 Room Air 02/15/19 20:00 86 02/15/19 20:00 97.0 89 18 116/73 (87) 97 02/15/19 19:54 91 18 97 Room Air 21 87 18 93 02/15/19 16:00 97.3 86 18 140/74 (96) 96 02/15/19 16:00 88 02/15/19 15:22 127/82 02/15/19 15:00 127/82 02/15/19 12:00 97.3 88 19 127/82 (97) 98 02/15/19 12:00 81 Intake and Output 02/15/19 02/16/19 19:00 07:00 Intake Total 358 ml Output Total 300 ml Balance 358 ml -300 ml Intake Oral 358 ml Output Urine Total 300 ml # Voids 1 # Bowel Movements 1 Height (Feet): 5 Height (Inches): 5.00 Weight (Pounds): 183 General Appearance: no apparent distress Cardiovascular: normal rate Respiratory/Chest: decreased breath sounds Abdomen: soft, other - obese Sami Deutsch MD Feb 16, 2019 10:49
[2019-02-16 12:00] VITALS: BP 139/70
[2019-02-16 16:00] VITALS: BP 134/64
[2019-02-16] MEDS: Nitroglycerin Patch 0.4mg TDERMAL SCH (17:44)
--- NOTE | 2019-02-16 19:25 | NUR ---
HAND-OFF: Report given to COLLIN Jeong. Pt in stable condition. Family at bedside. Plan of care endorsed.
--- NOTE | 2019-02-16 19:30 | NUR ---
NURSE NOTES: Received report from COLLIN Alves. Patient is awake, lying in semi peng's; resting comfortably. Denies pain at this time. No signs of distress noted. Checked IV site and flushed. No erythema, bleeding or infiltration noted. Edema noted at left arm. Elevated left arm with pillow. Bed at lowest position, brakes on, siderailsx3. Call light within reach. Will continue to monitor.
[2019-02-16 20:00] VITALS: BP 144/66
--- NOTE | 2019-02-16 20:05 | Neurology Progress Note ---
Interim History Interim History Interim History Ms. Key feels relatively well today. She greeted me with a nice smile when I went to visit her. She just returned from her CT scan. Her daughter is visiting her at this point in time. She denies any new neurological symptoms. She also denies any further episodes of loss of consciousness. It is still unclear as to what exactly happened when she passed out. Review of Systems Neuro Review of Systems Unable to obtain because of her aphasia. Objective Physical Exam Last Vital Signs Date Time Temp Pulse Resp B/P (MAP) Pulse Ox O2 Delivery O2 Flow Rate FiO2 02/16/19 17:44 139/70 02/16/19 16:00 98.0 71 21 98 02/16/19 14:11 Room Air 21 Neurologic Exam Objective PHYSICAL EXAMINATION: GENERAL: She is a well-developed, well-nourished, obese black lady, lying in bed, in no acute distress. HEAD: Normocephalic and atraumatic. EENT: Examination benign. NECK: No neck rigidity was observed. NEUROLOGICAL EXAMINATION: MENTAL STATUS EXAMINATION: She was awake and alert. She was oriented to self only. She was severely aphasic making further mental status testing impossible. SPEECH: She said a few words. LANGUAGE: She had an anterior greater than posterior aphasia. CRANIAL NERVE EXAMINATION: II: She was able to count fingers. III, IV & : The external ocular movements were full and the pupils 3 mm in diameter, equal, round, regular, and reactive to light. V: She had normal facial sensations, and the temporales, masseters, and pterygoids functioned normally. VII: She had a right seventh central facial paresis. VIII: She was able to hear and had no nystagmus. IX: The palate moved symmetrically on phonation. X: She had no hoarseness of voice. XI: The sternocleidomastoids and trapezii functioned normally. XII: The tongue was in the midline without any fasciculations or atrophy. MOTOR SYSTEM: The tone was diminished in the right upper extremity. Examination of muscle mass revealed wasting on the right side. Examination of power revealed G 0/5 power in the right upper and lower extremities, G 5-/5 power in the left upper extremity, and G 4/5 power in the left lower extremity. SENSORY EXAMINATION: Sensations could not be tested accurately, but she complained of a dysesthetic feeling over entire right body. REFLEXES: 0 at the biceps, triceps, brachioradialis, knees, and ankles. The plantar response was flexor on the left and mute on the right. COORDINATION: Gfmldx-vq-huup testing was normal on the left side, but she was unable to perform on the right side. She was unable to perform eyss-kn-kygl testing bilaterally. STANCE & GAIT: Could not be tested. Impression/Recommendations Diagnostic Impression 1. Ms. Stefanie Key is a 73-year-old, right-handed, black lady, who does have a past history of hypertension, obesity, right hemiplegia, and aphasia related to a stroke, and a chronic pain syndrome. She had an episode of loss of consciousness at her [place] [facility] on February 14, 2019 and was thus brought to the hospital. 2. She feels relatively well today. She greeted me with a nice smile when I went to visit her. She just returned from her CT scan. Her daughter is visiting her at this point in time. She denies any new neurological symptoms. She also denies any further episodes of loss of consciousness. It is still unclear as to what exactly happened when she passed out. 3. On neurological examination, at this time, she is severely aphasic making further mental status testing quite impossible. She also has a right seventh central facial paresis, diminished tone in the right upper extremity, right- sided plegia, left lower extremity paresis, right body dysesthetic feelings, global areflexia, mute plantar response on the right side, inability to perform vdnvss-en-ebpo testing on the right side, inability to perform sicf-zn-qzug testing bilaterally, and an inability to stand and walk. 4. 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 5. An EEG performed on February 14, 2019 reveals left greater than right hemispheric dysfunction and in addition, focal dysfunction involving the left temporal region. 6. The Carotid duplex reveals 50-70 percent stenosis of the right internal carotid artery and an occluded left internal carotid artery. 7. Laboratory data obtained thus far revealed that when she came in her WBC count was elevated to 11,400 with a relatively normal CBC otherwise. The chemistry panel revealed a relatively normal chemistry panel. She has since had a vitamin B12 level, performed, which is low at 394, normal folate, and normal TSH. Her urinalysis revealed 3+ leukocyte esterase, 5-10 red blood cells , and 30-40 white blood cells per high-power field. 8. She does got back from a CTA of the intracranial and extracranial cerebral blood vessels, however the results are pending. 9. 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 10. As per Dr. Deutsch the Keppra was started for suspicion of seizures and she has never been on it in the past. 11. The patient does have a significant right internal carotid artery stenosis in addition to the left internal carotid artery occlusion. If this is in fact the case, she should be evaluated by a vascular surgeon. Recommendations 1. Continue present management. 2. Aggressive treatment of infectious process. 3. Vitamin B12 1000 mcg subcutaneously daily for 3 days and then monthly. 4. Await results of CT angiogram. 5. Discontinue Keppra as the patient's EEG did not reveal any interictal or ictal discharges. 6. Observe closely. Chuy Feliz M.D., M.S.P.H. Chuy Feliz MD Feb 16, 2019 20:05
--- NOTE | 2019-02-16 20:48 | Cardiology Progress Note ---
Assessment/Plan Assessment/Plan syncope? seizure cva hx min abn trop trop neg telel neg ekg neg materials tech diff study overal normla fucntion i would be more suspicious of a neuro cause of loc rxn of uti per dr payan Subjective ROS Limited/Unobtainable: Yes Subjective aphasic but dter feel co abd pain Objective Last 24 Hour Vital Signs Date Time Temp Pulse Resp B/P (MAP) Pulse Ox O2 Delivery O2 Flow Rate FiO2 02/16/19 17:44 139/70 02/16/19 16:00 98.0 71 21 134/64 (87) 98 02/16/19 16:00 97 02/16/19 14:12 139/70 02/16/19 14:11 84 18 98 Room Air 21 83 18 96 02/16/19 12:00 93 02/16/19 12:00 98.3 79 20 139/70 (93) 98 02/16/19 09:00 Room Air 02/16/19 08:58 83 136/59 02/16/19 08:00 98.1 83 18 136/59 (84) 97 02/16/19 08:00 88 02/16/19 07:38 84 18 98 Room Air 21 83 18 96 02/16/19 05:48 152/91 02/16/19 04:01 86 02/16/19 04:00 97.8 93 18 152/91 (111) 95 02/16/19 01:36 84 18 98 Room Air 21 81 18 95 02/16/19 00:00 76 02/16/19 00:00 97.9 79 18 137/66 (89) 97 02/15/19 22:00 117/80 02/15/19 21:00 Room Air General Appearance: no apparent distress, alert Cardiovascular: normal rate Respiratory/Chest: lungs clear Abdomen: normal bowel sounds, non tender, soft Extremities: no swelling Intake and Output 02/15/19 02/16/19 19:00 07:00 Intake Total 358 ml Output Total 300 ml Balance 358 ml -300 ml Intake Oral 358 ml Output Urine Total 300 ml # Voids 1 # Bowel Movements 1 Microbiology Date/Time Source Procedure Growth Status 02/14/19 14:22 Nasal Nares MRSA Culture - Final NO METHICILLIN RESISTANT STAPH AUREUS... Complete 02/14/19 12:19 Urine,Clean Catch Urine Culture - Preliminary Mixed Gram Positive Organism Resulted 02/14/19 14:22 Rectal Mucosa VRE Culture - Final NO VANCOMYCIN RESISTANT ENTEROCOCCUS ... Complete Neymar Simms MD Feb 16, 2019 20:48
[2019-02-16] MEDS: Sennosides 8.6mg tab ORAL SCH (20:50)
[2019-02-16] MEDS: Sorbitol Solution UD 30ml ORAL SCH (20:50)
[2019-02-16] MEDS: Vitamin B12 1000mcg/ml Inj IM SCH (20:51)
[2019-02-16] MEDS: HYDROcodone/Acetamin 7.5/325 tab ORAL PRN (21:08)
[2019-02-17] VITALS: BP 113/54
[2019-02-17] MEDS: Albuterol ud Inhalation HHN SCH ×4 (01:25→19:58)
--- NOTE | 2019-02-17 02:56 | NUR ---
NURSE NOTES: Resting throughout the night. No significant change of condition noted. Will continue to monitor.
[2019-02-17 04:00] VITALS: BP 119/71
[2019-02-17] MEDS: HydrALAZINE 25mg tab ORAL SCH ×3 (06:00→22:19)
[2019-02-17] MEDS: Lactulose 20gm/30ml UDC ORAL SCH ×3 (06:33→22:19)
--- NOTE | 2019-02-17 07:20 | NUR ---
NURSE NOTES: Received report from COLLIN Jeong. Patient is awake, lying in semi peng's; resting comfortably. Denies pain at this time. No signs of distress noted. Checked IV site and flushed. No erythema, bleeding or infiltration noted. Edema noted at left arm. Elevated left arm with pillow. Noted right arm weakness. Bed at lowest position, brakes on, siderailsx 3. Call light within reach. Will continue to monitor.
--- NOTE | 2019-02-17 07:30 | NUR ---
HAND-OFF: Report given to COLLIN Gaviria. Plan of care endorsed.
[2019-02-17 08:00] VITALS: BP 130/76
[2019-02-17] MEDS: Docusate 100mg cap ORAL SCH ×3 (09:10→17:40)
[2019-02-17] MEDS: Aspirin EC 81mg tab ORAL SCH (09:11)
[2019-02-17] MEDS: Heparin 5000 units/ml inj SUBQ SCH ×2 (09:12→20:48)
[2019-02-17] MEDS: HYDROcodone/Acetamin 7.5/325 tab ORAL PRN ×3 (09:22→17:43)
[2019-02-17 09:31] LABS: ALANINE AMINOTRANSFERASE 18 U/L (12-78); ALBUMIN 2.9 G/DL (3.4-5.0); ALBUMIN/GLOBULIN RATIO 0.7 (1.0-2.7); ALKALINE PHOSPHATASE 67 U/L (46-116); ANION GAP 12 mmol/L (5-15); ASPARTATE AMINO TRANSFERASE 13 U/L (15-37); BILIRUBIN,TOTAL 0.3 MG/DL (0.2-1.0); BLOOD UREA NITROGEN 14 mg/dL (7-18); CALCIUM 9.1 MG/DL (8.5-10.1); CARBON DIOXIDE 25 MMOL/L (21-32); CHLORIDE 105 MMOL/L (98-107); CREATININE 0.8 MG/DL (0.55-1.30); PHOSPHORUS 3.1 MG/DL (2.5-4.9); POTASSIUM 3.6 MMOL/L (3.5-5.1); SODIUM 141 MMOL/L (136-145)
[2019-02-17 10:16] LABS: BASOPHILS % (AUTO) 1.3 % (0.0-2.0); EOSINOPHILS % (AUTO) 0.2 % (0.0-3.0); HEMATOCRIT 38.3 % (37.0-47.0); HEMOGLOBIN 12.7 G/DL (12.0-16.0); MEAN CORPUSCULAR VOLUME 92 FL (80-99); MONOCYTES % (AUTO) 4.5 % (1.0-10.0); PLATELET COUNT 412 K/UL (150-450); RED BLOOD COUNT 4.15 M/UL (4.20-5.40); RED CELL DISTRIBUTION WIDTH 12.8 % (11.6-14.8); WHITE BLOOD COUNT 11.4 K/UL (4.8-10.8)
--- NOTE | 2019-02-17 10:55 | General Progress Note ---
Assessment/Plan Problem List: (1) Syncope ICD Codes: R55 - Syncope and collapse SNOMED: 483975758 Qualifiers: Qualified Codes: R55 - Syncope and collapse (2) UTI (urinary tract infection) ICD Codes: N39.0 - Urinary tract infection, site not specified SNOMED: 01866995 Qualifiers: Qualified Codes: N39.0 - Urinary tract infection, site not specified (3) chronic abdominal pain (4) CVA (cerebral vascular accident) ICD Codes: I63.9 - Cerebral infarction, unspecified SNOMED: 711323088 (5) Cystitis (6) Fecal impaction ICD Codes: K56.41 - Fecal impaction SNOMED: 40508749 Assessment/Plan: UA and c/s pending Neuro eval appretiated Discontinue Keppra as the patient's EEG did not reveal any interictal or ictal discharges. Due CTA carotids EEG Levaquin pending cultures recheck Ua and C/S per orders adjust pain meds Subjective ROS Limited/Unobtainable: No Allergies: Coded Allergies: DICLOFENAC SODIUM (Verified Allergy, Unknown, 07/27/12) PENICILLINS (Verified Allergy, Unknown, 07/15/11) Objective Last 24 Hour Vital Signs Date Time Temp Pulse Resp B/P (MAP) Pulse Ox O2 Delivery O2 Flow Rate FiO2 02/17/19 09:52 97.7 02/17/19 09:11 87 130/63 02/17/19 08:00 99.0 87 19 130/76 (94) 96 02/17/19 07:41 91 02/17/19 06:57 80 16 100 Room Air 21 79 15 98 02/17/19 06:00 119/71 02/17/19 04:00 92 02/17/19 04:00 97.7 88 18 119/71 (87) 96 02/17/19 01:25 82 18 97 Room Air 21 80 18 95 02/17/19 00:00 76 02/17/19 00:00 97.8 78 18 113/54 (73) 96 02/16/19 21:08 144/66 02/16/19 21:00 Room Air 02/16/19 20:00 89 02/16/19 20:00 99.3 76 20 144/66 (92) 98 02/16/19 17:44 139/70 02/16/19 16:00 98.0 71 21 134/64 (87) 98 02/16/19 16:00 97 02/16/19 14:12 139/70 02/16/19 14:11 84 18 98 Room Air 21 83 18 96 02/16/19 12:00 93 02/16/19 12:00 98.3 79 20 139/70 (93) 98 Intake and Output 02/16/19 02/17/19 19:00 07:00 Intake Total 1200 ml Balance 1200 ml Intake Oral 1200 ml # Voids 6 # Bowel Movements 2 Laboratory Tests 02/17/19 08:30: Sodium Level 141, Potassium Level 3.6, Chloride Level 105, Carbon Dioxide Level 25, Anion Gap 12, Blood Urea Nitrogen 14, Creatinine 0.8, Estimat Glomerular Filtration Rate , Glucose Level 121H, Calcium Level 9.1, Phosphorus Level 3.1, Magnesium Level 2.1, Total Bilirubin 0.3, Aspartate Amino Transf (AST/SGOT) 13L , Alanine Aminotransferase (ALT/SGPT) 18, Alkaline Phosphatase 67, C-Reactive Protein, Quantitative 2.8H, Pro-B-Type Natriuretic Peptide 138H, Total Protein 6.9, Albumin 2.9L, Globulin 4.0, Albumin/Globulin Ratio 0.7L 02/17/19 09:30: White Blood Count 11.4H, Red Blood Count 4.15L, Hemoglobin 12.7, Hematocrit 38.3 , Mean Corpuscular Volume 92, Mean Corpuscular Hemoglobin 30.5, Mean Corpuscular Hemoglobin Concent 33.0, Red Cell Distribution Width 12.8, Platelet Count 412, Mean Platelet Volume 4.8L, Neutrophils (%) (Auto) 81.0H, Lymphocytes (%) (Auto) 13.0L, Monocytes (%) (Auto) 4.5, Eosinophils (%) (Auto) 0.2, Basophils (%) (Auto) 1.3 Height (Feet): 5 Height (Inches): 5.00 Weight (Pounds): 183 General Appearance: no apparent distress Cardiovascular: normal rate Respiratory/Chest: decreased breath sounds Abdomen: soft Objective no change Sami Deutsch MD Feb 17, 2019 10:54
--- NOTE | 2019-02-17 11:54 | NUR ---
CASE MANAGEMENT:REVIEW 02/17/19 SI: SYNCOPE/ UTI 99.0 87 19 130/76 96% ON RA WBC+11.4; C-REC PROT 2.8; IS: HEPARIN SQ Q12HR SENOKOT PO QHS HYDRALAZINE PO Q8HR NORVASC PO QD LACTULOSE PO Q8HR LIPITOR PO QHS NEURONTIN PO TID ASPIRIN PO QD IM VIT B12 Q24HR X3 : TO TELEMETRY UNIT DCP: RETURN TO SNF PLAN: REPEAT URINE CX CT ANGIO PENDING
[2019-02-17 11:56] LABS: APPEARANCE,URINE CLOUDY; BILIRUBIN, URINE NEGATIVE (NEGATIVE); GLUCOSE, URINE (UA) NEGATIVE (NEGATIVE); KETONES,URINE 1+ (NEGATIVE); LEUKOCYTE ESTERASE ,URINE 3+ (NEGATIVE); NITRITE,URINE POSITIVE (NEGATIVE); PH,URINE 7 (4.5-8.0); PROTEIN,URINE 2+ (NEGATIVE); UROBILINOGEN,URINE NORMAL MG/DL (0.0-1.0)
[2019-02-17 12:00] VITALS: BP 127/64
[2019-02-17 12:03] LABS: COLOR,URINE YELLOW
--- NOTE | 2019-02-17 15:00 | NUR ---
NURSE NOTES: Patient refused to go to CT. patient states she will do it later.
[2019-02-17 16:00] VITALS: BP 127/64
--- NOTE | 2019-02-17 17:30 | NUR ---
NURSE NOTES: Asked patient 2nd time for CT. Patient refused to go to CT. patient states she will do it later.
[2019-02-17] MEDS: Nitroglycerin Patch 0.4mg TDERMAL SCH (17:40)
--- NOTE | 2019-02-17 19:45 | NUR ---
NURSE NOTES: Received pt and report from COLLIN Gaviria. Observed pt resting in bed with both eyes open and watching television with family member at bedside. Pt is A/Ox3. anode rebuilder is in placed, IV site intact, asymptomatic, and patent. Bed is in the lowest position and locked. Call light within reach. No signs/symptoms of acute distress noted at this time. Will continue plan of care.
[2019-02-17 20:00] VITALS: BP 124/83
--- NOTE | 2019-02-17 20:03 | NUR ---
HAND-OFF: Report given to COLLIN Funez. Endorsed about patient postponing CT test.
[2019-02-17] MEDS: Vitamin B12 1000mcg/ml Inj IM SCH (20:47)
[2019-02-17] MEDS: Sennosides 8.6mg tab ORAL SCH (20:47)
[2019-02-17] MEDS: Sorbitol Solution UD 30ml ORAL SCH (20:48)
--- NOTE | 2019-02-17 21:43 | Neurology Progress Note ---
Interim History Interim History Interim History Ms. Key feels well. She greeted me with a nice smile when I went to visit her. She apparently has not had her CT angiogram of the neck and brain performed yet. Her daughter is with her at this point in time. She denies any new neurological symptoms. She also denies any further episodes of loss of consciousness. It is still unclear as to what exactly happened when she passed out. Review of Systems Neuro Review of Systems Unable to obtain because of her aphasia. Objective Physical Exam Last Vital Signs Date Time Temp Pulse Resp B/P (MAP) Pulse Ox O2 Delivery O2 Flow Rate FiO2 02/17/19 19:57 91 20 99 Room Air 21 89 20 99 02/17/19 18:13 97.9 02/17/19 17:40 127/64 Laboratory Tests Test 02/17/19 08:30 02/17/19 09:30 02/17/19 11:38 Sodium Level 141 MMOL/L (136-145) Potassium Level 3.6 MMOL/L (3.5-5.1) Chloride Level 105 MMOL/L (98-107) Carbon Dioxide Level 25 MMOL/L (21-32) Anion Gap 12 mmol/L (5-15) Blood Urea Nitrogen 14 mg/dL (7-18) Creatinine 0.8 MG/DL (0.55-1.30) Estimat Glomerular Filtration Rate mL/min (>60) Glucose Level 121 MG/DL (74-106) H Calcium Level 9.1 MG/DL (8.5-10.1) Phosphorus Level 3.1 MG/DL (2.5-4.9) Magnesium Level 2.1 MG/DL (1.8-2.4) Total Bilirubin 0.3 MG/DL (0.2-1.0) Aspartate Amino Transf (AST/SGOT) 13 U/L (15-37) L Alanine Aminotransferase (ALT/SGPT) 18 U/L (12-78) Alkaline Phosphatase 67 U/L (46-116) C-Reactive Protein, Quantitative 2.8 mg/dL (0.00-0.90) H Pro-B-Type Natriuretic Peptide 138 pg/mL (0-125) H Total Protein 6.9 G/DL (6.4-8.2) Albumin 2.9 G/DL (3.4-5.0) L Globulin 4.0 g/dL Albumin/Globulin Ratio 0.7 (1.0-2.7) L White Blood Count 11.4 K/UL (4.8-10.8) H Red Blood Count 4.15 M/UL (4.20-5.40) L Hemoglobin 12.7 G/DL (12.0-16.0) Hematocrit 38.3 % (37.0-47.0) Mean Corpuscular Volume 92 FL (80-99) Mean Corpuscular Hemoglobin 30.5 PG (27.0-31.0) Mean Corpuscular Hemoglobin Concent 33.0 G/DL (32.0-36.0) Red Cell Distribution Width 12.8 % (11.6-14.8) Platelet Count 412 K/UL (150-450) Mean Platelet Volume 4.8 FL (6.5-10.1) L Neutrophils (%) (Auto) 81.0 % (45.0-75.0) H Lymphocytes (%) (Auto) 13.0 % (20.0-45.0) L Monocytes (%) (Auto) 4.5 % (1.0-10.0) Eosinophils (%) (Auto) 0.2 % (0.0-3.0) Basophils (%) (Auto) 1.3 % (0.0-2.0) Urine Color Yellow Urine Appearance Cloudy Urine pH 7 (4.5-8.0) Urine Specific [place] 1.010 (1.005-1.035) Urine Protein 2+ (NEGATIVE) H Urine Glucose (UA) Negative (NEGATIVE) Urine Ketones 1+ (NEGATIVE) H Urine Blood 5+ (NEGATIVE) H Urine Nitrite Positive (NEGATIVE) H Urine Bilirubin Negative (NEGATIVE) Urine Urobilinogen Normal MG/DL (0.0-1.0) Urine Leukocyte Esterase 3+ (NEGATIVE) H Urine RBC 5-10 /HPF (0 - 2) H Urine WBC 10-15 /HPF (0 - 2) H Urine Squamous Epithelial Cells Few /LPF (NONE/OCC) Urine Bacteria Many /HPF (NONE) H Neurologic Exam Objective PHYSICAL EXAMINATION: GENERAL: She is a well-developed, well-nourished, obese black lady, lying in bed, in no acute distress. HEAD: Normocephalic and atraumatic. EENT: Examination benign. NECK: No neck rigidity was observed. NEUROLOGICAL EXAMINATION: MENTAL STATUS EXAMINATION: She was awake and alert. She was oriented to self only. She was severely aphasic making further mental status testing impossible. SPEECH: She said a few words. LANGUAGE: She had an anterior greater than posterior aphasia. CRANIAL NERVE EXAMINATION: II: She was able to count fingers. III, IV & : The external ocular movements were full and the pupils 3 mm in diameter, equal, round, regular, and reactive to light. V: She had normal facial sensations, and the temporales, masseters, and pterygoids functioned normally. VII: She had a right seventh central facial paresis. VIII: She was able to hear and had no nystagmus. IX: The palate moved symmetrically on phonation. X: She had no hoarseness of voice. XI: The sternocleidomastoids and trapezii functioned normally. XII: The tongue was in the midline without any fasciculations or atrophy. MOTOR SYSTEM: The tone was diminished in the right upper extremity. Examination of muscle mass revealed wasting on the right side. Examination of power revealed G 0/5 power in the right upper and lower extremities, G 5-/5 power in the left upper extremity, and G 4/5 power in the left lower extremity. SENSORY EXAMINATION: Sensations could not be tested accurately, but she complained of a dysesthetic feeling over entire right body. REFLEXES: 0 at the biceps, triceps, brachioradialis, knees, and ankles. The plantar response was flexor on the left and extensor on the right. COORDINATION: Ogtmvw-nx-xlvj testing was normal on the left side, but she was unable to perform on the right side. She was unable to perform poyr-xl-ykcm testing bilaterally. STANCE & GAIT: Could not be tested. Impression/Recommendations Diagnostic Impression 1. Ms. Stefanie Key is a 73-year-old, right-handed, black lady, who does have a past history of hypertension, obesity, right hemiplegia, and aphasia related to a stroke, and a chronic pain syndrome. She had an episode of loss of consciousness at her skilled nursing on February 14, 2019 and was thus brought to the hospital. 2. She feels well. She greeted me with a nice smile when I went to visit her. She apparently has not had her CT angiogram of the neck and brain performed yet. Her daughter is with her at this point in time. She denies any new neurological symptoms. She also denies any further episodes of loss of consciousness. It is still unclear as to what exactly happened when she passed out. 3. On neurological examination, at this time, she is severely aphasic making further mental status testing quite impossible. She also has a right seventh central facial paresis, diminished tone in the right upper extremity, right- sided plegia, left lower extremity paresis, right body dysesthetic feelings, global areflexia, extensor plantar response on the right side, inability to perform pzbnvs-gc-ayem testing on the right side, inability to perform heel-to- rubalcava testing bilaterally, and an inability to stand and walk. 4. 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 5. An EEG performed on February 14, 2019 reveals left greater than right hemispheric dysfunction and in addition, focal dysfunction involving the left temporal region. 6. The Carotid duplex reveals 50-70 percent stenosis of the right internal carotid artery and an occluded left internal carotid artery. 7. Laboratory data obtained thus far revealed that when she came in her WBC count was elevated to 11,400 with a relatively normal CBC otherwise. The chemistry panel revealed a relatively normal chemistry panel. She has since had a vitamin B12 level, performed, which is low at 394, normal folate, and normal TSH. Her urinalysis revealed 3+ leukocyte esterase, 5-10 red blood cells , and 30-40 white blood cells per high-power field. 8. The CTA of the intracranial and extracranial cerebral blood vessels has apparently not been done at all. 9. 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 10. As per Dr. Deutsch the Keppra was started for suspicion of seizures and she has never been on it in the past. 11. The patient does have a significant right internal carotid artery stenosis in addition to the left internal carotid artery occlusion. If this is in fact the case, she should be evaluated by a vascular surgeon. Recommendations 1. Continue present management. 2. Aggressive treatment of infectious process. 3. Vitamin B12 1000 mcg subcutaneously daily for 3 days and then monthly. 4. Await CTA of the intracranial and extracranial cerebral vessels. 5. Observe closely. Chuy Feliz M.D., M.S.P.H. Chuy Feliz MD Feb 17, 2019 21:43
[2019-02-18] VITALS: BP 124/60
[2019-02-18] MEDS: Albuterol ud Inhalation HHN SCH ×4 (01:18→19:00)
[2019-02-18 04:00] VITALS: BP 140/58
[2019-02-18] MEDS: Lactulose 20gm/30ml UDC ORAL SCH ×3 (06:00→22:00)
[2019-02-18] MEDS: HydrALAZINE 25mg tab ORAL SCH ×3 (06:04→21:06)
--- NOTE | 2019-02-18 07:51 | NUR ---
HAND-OFF: Report given to COLLIN Gaviria. Pt is in stable condition. Endorsed that pt and daughter refused Head CT w/contrast. Daughter said that she will come back at noon to talk to dayskyft nurse. Endorsed to COLLIN Gaviria.
[2019-02-18 08:00] VITALS: BP 139/64
[2019-02-18] MEDS: Aspirin EC 81mg tab ORAL SCH (08:21)
[2019-02-18] MEDS: HYDROcodone/Acetamin 7.5/325 tab ORAL PRN ×3 (08:21→20:36)
[2019-02-18] MEDS: Docusate 100mg cap ORAL SCH ×3 (08:22→17:42)
[2019-02-18] MEDS: Heparin 5000 units/ml inj SUBQ SCH ×2 (08:25→20:29)
--- NOTE | 2019-02-18 09:14 | NUR ---
DISCHARGE PLANNING FAXED CLINICALS TO [facility] T: [phone]
--- NOTE | 2019-02-18 11:07 | General Progress Note ---
Assessment/Plan Problem List: (1) Syncope ICD Codes: R55 - Syncope and collapse SNOMED: 430175385 Qualifiers: Qualified Codes: R55 - Syncope and collapse (2) UTI (urinary tract infection) ICD Codes: N39.0 - Urinary tract infection, site not specified SNOMED: 41879728 Qualifiers: Qualified Codes: N39.0 - Urinary tract infection, site not specified (3) chronic abdominal pain (4) CVA (cerebral vascular accident) ICD Codes: I63.9 - Cerebral infarction, unspecified SNOMED: 447547037 (5) Cystitis (6) Fecal impaction ICD Codes: K56.41 - Fecal impaction SNOMED: 97269134 Assessment/Plan: CTA pending daughters consent- if refused will discharge UA and c/s noted Neuro eval appretiated Discontinue Keppra as the patient's EEG did not reveal any interictal or ictal discharges. Due CTA carotids EEG noted Levaquin pending cultures recheck Ua and C/S per orders adjust pain meds Subjective ROS Limited/Unobtainable: No Constitutional: Reports: malaise Allergies: Coded Allergies: DICLOFENAC SODIUM (Verified Allergy, Unknown, 07/27/12) PENICILLINS (Verified Allergy, Unknown, 07/15/11) Objective Last 24 Hour Vital Signs Date Time Temp Pulse Resp B/P (MAP) Pulse Ox O2 Delivery O2 Flow Rate FiO2 02/18/19 08:51 97.7 02/18/19 08:21 100 137/61 02/18/19 08:00 98.0 97 20 139/64 (89) 99 02/18/19 07:57 100 20 100 Room Air 21 118 20 100 02/18/19 06:04 149/61 02/18/19 04:00 77 02/18/19 04:00 97.7 77 20 140/58 (85) 94 02/18/19 01:18 82 20 100 Room Air 21 79 20 97 02/18/19 00:00 77 02/18/19 00:00 98.6 79 19 124/60 (81) 95 02/17/19 22:19 124/83 02/17/19 21:00 Room Air 02/17/19 20:00 84 02/17/19 20:00 98.4 88 20 124/83 (97) 95 02/17/19 19:57 91 20 99 Room Air 21 89 20 99 02/17/19 17:40 127/64 02/17/19 16:03 91 02/17/19 16:00 97.9 88 18 127/64 (85) 97 02/17/19 13:28 127/64 02/17/19 12:57 89 18 100 Room Air 21 88 18 99 02/17/19 12:00 97.7 68 20 127/64 (85) 97 02/17/19 11:46 70 Intake and Output 02/17/19 02/18/19 19:00 07:00 Intake Total 300 ml 300 ml Output Total 300 ml Balance 300 ml 0 ml Intake Oral 300 ml 300 ml Output Urine Total 300 ml # Voids 2 2 # Bowel Movements 2 Laboratory Tests 02/17/19 11:38: Urine Color Yellow, Urine Appearance Cloudy, Urine pH 7, Urine Specific [place] 1.010, Urine Protein 2+H, Urine Glucose (UA) Negative, Urine Ketones 1+H, Urine Blood 5+H, Urine Nitrite PositiveH, Urine Bilirubin Negative, Urine Urobilinogen Normal, Urine Leukocyte Esterase 3+H, Urine RBC 5-10H, Urine WBC 10 -15H, Urine Squamous Epithelial Cells Few, Urine Bacteria ManyH Current Medications Medications (Trade) Dose Ordered Sig/Carmelo Route PRN Reason Start Time Stop Time Status Last Admin Dose Admin Acetaminophen/ Hydrocodone Bitart ([place] 7.5/325) 1 tab Q4H PRN ORAL For Pain 02/15/19 13:30 02/22/19 13:29 02/18/19 14:36 Albuterol Sulfate (Proventil) 2.5 mg Q6HRT HHN 02/15/19 19:00 02/20/19 18:59 02/18/19 07:55 Amlodipine Besylate (Norvasc) 5 mg DAILY ORAL 02/15/19 09:00 03/17/19 08:59 02/18/19 08:21 Aspirin (Ecotrin) 81 mg DAILY ORAL 02/15/19 09:00 03/17/19 08:59 02/18/19 08:21 Atorvastatin Calcium (Lipitor) 10 mg BEDTIME ORAL 02/14/19 21:00 03/16/19 20:59 02/17/19 20:47 Docusate Sodium (Colace) 100 mg TID ORAL 02/14/19 18:00 03/16/19 17:59 02/18/19 08:22 Gabapentin (Neurontin) 300 mg TID ORAL 02/14/19 18:00 03/16/19 17:59 02/18/19 14:31 Gabapentin (Neurontin) 600 mg QHS ORAL 02/14/19 21:00 03/16/19 20:59 02/17/19 20:47 Heparin Sodium (Porcine) (Heparin 5000 units/ml) 5,000 units EVERY 12 HOURS SUBQ 02/14/19 21:00 03/16/19 20:59 02/18/19 08:25 Hydralazine HCl (Apresoline) 75 mg EVERY 8 HOURS ORAL 02/14/19 22:00 03/16/19 21:59 02/18/19 14:31 Lactulose (Cephulac) 20 gm Q8HR ORAL 02/14/19 22:00 03/16/19 21:59 02/17/19 22:19 Nitroglycerin (Ntg) 1 patch Q24H TDERMAL 02/14/19 16:00 03/16/19 15:59 02/17/19 17:40 Sennosides (Senokot) 8.6 mg QHS ORAL 02/14/19 21:00 03/16/19 20:59 02/17/19 20:47 Sorbitol (Sorbitol) 45 ml QHS ORAL 02/16/19 21:00 03/18/19 20:59 02/17/19 20:48 Height (Feet): 5 Height (Inches): 5.00 Weight (Pounds): 183 General Appearance: no apparent distress Cardiovascular: normal rate Respiratory/Chest: decreased breath sounds Abdomen: distended Objective no change Sami Deutsch MD Feb 18, 2019 11:07
[2019-02-18 12:00] VITALS: BP 144/75
--- NOTE | 2019-02-18 12:57 | NUR ---
RESPIRATORY NOTE: pt refused 1300 breathing tx. not feeling well. COLLIN Gaviria notified.
[2019-02-18] MEDS ORDERED: LACTULOSE20 GM/301 ORAL (15:15)
[2019-02-18] MEDS ORDERED: NTG1 PATCH TDERMAL (15:15)
[2019-02-18] MEDS ORDERED: SORBITOL 70%30 ML ORAL (15:15)
[2019-02-18] MEDS ORDERED: HYDRALAZINE HCL25 M1 ORAL (15:15)
[2019-02-18] MEDS ORDERED: NEURONTIN300 MG ORAL (15:18)
[2019-02-18] MEDS ORDERED: NORCO 5-325 TA1 EACH ORAL (15:18)
--- NOTE | 2019-02-18 15:25 | NUR ---
DISCHARGE PLANNED PATIENT WILL BE RETURNING TO [facility] ROOM [address] SKILLED T: [phone] FOR NURSE TO NURSE REPORT [facility] HAS BEEN ARRANGED FOR 1800 LENS MATCHER SPOKE WITH DAUGHTER, ROYA. SHE IS IN AGREEMENT WITH DISCHARGE PLAN
--- NOTE | 2019-02-18 15:42 | Neurology Progress Note ---
Interim History Interim History Interim History Ms. Key feels well. She greeted me with a nice smile when I went to visit her. Her daughter refused for her to get a CT angiogram of the neck and brain performed as in the past she had her IV line infiltrated. She denies any new neurological symptoms. She also denies any further episodes of loss of consciousness. It is still unclear as to what exactly happened when she passed out. Review of Systems Neuro Review of Systems Unable to obtain because of her aphasia. Objective Physical Exam Last Vital Signs Date Time Temp Pulse Resp B/P (MAP) Pulse Ox O2 Delivery O2 Flow Rate FiO2 02/18/19 14:31 144/75 02/18/19 12:56 Room Air 21 02/18/19 12:00 96.6 68 20 96 Neurologic Exam Objective PHYSICAL EXAMINATION: GENERAL: She is a well-developed, well-nourished, obese black lady, lying in bed, in no acute distress. HEAD: Normocephalic and atraumatic. EENT: Examination benign. NECK: No neck rigidity was observed. NEUROLOGICAL EXAMINATION: MENTAL STATUS EXAMINATION: She was awake and alert. She was oriented to self only. She was severely aphasic making further mental status testing impossible. SPEECH: She said a few words. LANGUAGE: She had an anterior greater than posterior aphasia. CRANIAL NERVE EXAMINATION: II: She was able to count fingers. III, IV & : The external ocular movements were full and the pupils 3 mm in diameter, equal, round, regular, and reactive to light. V: She had normal facial sensations, and the temporales, masseters, and pterygoids functioned normally. VII: She had a right seventh central facial paresis. VIII: She was able to hear and had no nystagmus. IX: The palate moved symmetrically on phonation. X: She had no hoarseness of voice. XI: The sternocleidomastoids and trapezii functioned normally. XII: The tongue was in the midline without any fasciculations or atrophy. MOTOR SYSTEM: The tone was diminished in the right upper extremity. Examination of muscle mass revealed wasting on the right side. Examination of power revealed G 0/5 power in the right upper and lower extremities, G 5-/5 power in the left upper extremity, and G 4/5 power in the left lower extremity. SENSORY EXAMINATION: Sensations could not be tested accurately, but she complained of a dysesthetic feeling over entire right body. REFLEXES: 0 at the biceps, triceps, brachioradialis, knees, and ankles. The plantar response was flexor on the left and extensor on the right. COORDINATION: Adedga-bc-iqfo testing was normal on the left side, but she was unable to perform on the right side. She was unable to perform nytx-gr-abqa testing bilaterally. STANCE & GAIT: Could not be tested. Impression/Recommendations Diagnostic Impression 1. Ms. Stefanie Key is a 73-year-old, right-handed, black lady, who does have a past history of hypertension, obesity, right hemiplegia, and aphasia related to a stroke, and a chronic pain syndrome. She had an episode of loss of consciousness at her intermediate on February 14, 2019 and was thus brought to the hospital. 2. She feels well. She greeted me with a nice smile when I went to visit her. Her daughter refused for her to get a CT angiogram of the neck and brain performed as in the past she had her IV line infiltrated. She denies any new neurological symptoms. She also denies any further episodes of loss of consciousness. It is still unclear as to what exactly happened when she passed out. 3. On neurological examination, at this time, she is severely aphasic making further mental status testing quite impossible. She also has a right seventh central facial paresis, diminished tone in the right upper extremity, right- sided plegia, left lower extremity paresis, right body dysesthetic feelings, global areflexia, extensor plantar response on the right side, inability to perform tyutqm-do-igkn testing on the right side, inability to perform heel-to- rubalcava testing bilaterally, and an inability to stand and walk. 4. 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 5. An EEG performed on February 14, 2019 reveals left greater than right hemispheric dysfunction and in addition, focal dysfunction involving the left temporal region. 6. The Carotid duplex reveals 50-70 percent stenosis of the right internal carotid artery and an occluded left internal carotid artery. 7. Laboratory data obtained thus far revealed that when she came in her WBC count was elevated to 11,400 with a relatively normal CBC otherwise. The chemistry panel revealed a relatively normal chemistry panel. She has since had a vitamin B12 level, performed, which is low at 394, normal folate, and normal TSH. Her urinalysis revealed 3+ leukocyte esterase, 5-10 red blood cells , and 30-40 white blood cells per high-power field. 8. The CTA of the intracranial and extracranial cerebral blood vessels has been refused by her daughter. 9. 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 10. The patient does have a significant right internal carotid artery stenosis in addition to the left internal carotid artery occlusion. If this is in fact the case, she should be evaluated by a vascular surgeon. Recommendations 1. Continue present management. 2. Aggressive treatment of infectious process. 3. Vitamin B12 1000 mcg subcutaneously monthly. 4. Make patient's daughter aware of the risks of not investigating the severe right carotid stenosis. Chuy Feliz M.D., M.S.P.H. Chuy Feliz MD Feb 18, 2019 15:42
--- NOTE | 2019-02-18 15:48 | NUR ---
NURSE NOTES: Gave report to Ms. Reddy, Nursing Production Line Technician of [facility].
[2019-02-18 16:00] VITALS: BP 132/67
[2019-02-18] MEDS: Nitroglycerin Patch 0.4mg TDERMAL SCH (17:35)
--- NOTE | 2019-02-18 19:34 | Cardiology Progress Note ---
Assessment/Plan Assessment/Plan syncope? seizure cva hx min abn trop trop neg telel neg i reviewed persoanlly ekg neg laboratory mechanical technician diff study overal normal fucntion rxn of uti per dr ora valadez Subjective Cardiovascular: Denies: chest pain, lightheadedness Respiratory: Denies: shortness of breath Gastrointestinal/Abdominal: Denies: abdominal pain Genitourinary: Denies: burning Subjective aphasic but dter feel co abd pain Objective Last 24 Hour Vital Signs Date Time Temp Pulse Resp B/P (MAP) Pulse Ox O2 Delivery O2 Flow Rate FiO2 02/18/19 17:35 132/67 02/18/19 16:00 98.2 71 18 132/67 (88) 96 02/18/19 15:49 75 02/18/19 15:06 96.6 02/18/19 14:31 144/75 02/18/19 12:56 Room Air 21 02/18/19 12:00 96.6 68 20 144/75 (98) 96 02/18/19 11:29 80 02/18/19 09:00 Room Air 02/18/19 08:21 100 137/61 02/18/19 08:14 98 02/18/19 08:00 98.0 97 20 139/64 (89) 99 02/18/19 07:57 100 20 100 Room Air 21 118 20 100 02/18/19 06:04 149/61 02/18/19 04:00 77 02/18/19 04:00 97.7 77 20 140/58 (85) 94 02/18/19 01:18 82 20 100 Room Air 21 79 20 97 02/18/19 00:00 77 02/18/19 00:00 98.6 79 19 124/60 (81) 95 02/17/19 22:19 124/83 02/17/19 21:00 Room Air 02/17/19 20:00 84 02/17/19 20:00 98.4 88 20 124/83 (97) 95 02/17/19 19:57 91 20 99 Room Air 21 89 20 99 General Appearance: no apparent distress, alert Neck: supple Cardiovascular: normal rate Respiratory/Chest: lungs clear Abdomen: normal bowel sounds, non tender, soft Extremities: no swelling Intake and Output 02/17/19 02/18/19 18:59 06:59 Intake Total 300 ml 300 ml Output Total 300 ml Balance 300 ml 0 ml Intake Oral 300 ml 300 ml Output Urine Total 300 ml # Voids 2 2 # Bowel Movements 2 Microbiology Date/Time Source Procedure Growth Status 02/17/19 14:48 External Cath Urine Culture - Preliminary NO GROWTH Resulted 02/17/19 11:38 Urine,Clean Catch Urine Culture - Preliminary NO GROWTH Resulted Neymar Simms MD Feb 18, 2019 19:34
--- NOTE | 2019-02-18 19:38 | NUR ---
HAND-OFF: Report given to COLLIN Frank. Awaiting for patient pickup from [facility]. Called [facility] and states transport will be here in 20 minutes. Transfer packet, belonging checklist, and discharge paper are complete. Still need to remove heart monitor, ID band, and IV heplock.
--- NOTE | 2019-02-18 19:40 | NUR ---
NURSE NOTES: Received report from Nery Lester RN. Patient in bed AAO X4 with no complaints of acute pain at this time. Patient is hard of talking but is able to convey message. Kept clean, dry, and comfortable in bed. IV line intact and patent with continuous cardiac monitoring in place per protocol. Awaiting milk pickup truck driver for DC via [facility] transport. Safety precaution in place; siderails X3 up, call light within reach, bed in lowest position, brakes and alarm on at all times. Needs and wants anticipated and attended. Will continue to monitor.
[2019-02-18 20:00] VITALS: BP 155/75
[2019-02-18] MEDS: Sorbitol Solution UD 30ml ORAL SCH (20:26)
[2019-02-18] MEDS: Sennosides 8.6mg tab ORAL SCH (20:27)
--- NOTE | 2019-02-18 21:30 | NUR ---
NURSE NOTES: BP obtained 143/99 with no S/S of acute pain at this time
--- NOTE | 2019-02-18 21:53 | NUR ---
NURSE NOTES: Spoke with [facility] dispatch Samantha for pickle water pump operator. ETA at 2300
[2019-02-19] VITALS: BP 106/49
[2019-02-19] MEDS: Albuterol ud Inhalation HHN SCH (01:00)
--- NOTE | 2019-02-19 03:23 | NUR ---
[facility] B[facility]P 139/79[place] [id number]
--- NOTE | 2019-02-21 08:20 | Discharge Summary ---
Discharge Summary Discharge Summary _ DATE OF ADMISSION: 02/14/2019 DATE OF DISCHARGE: 02/19/2019 DISCHARGED BY: Dr. Deutsch REASON FOR ADMISSION: 73 years old female with past medical history significant for CVA with right hemiplegia,, chronic pain syndrome, hypertension, cognitive decline, was sent from the care home facility after witnessed syncopal episode. Patient apparently was unresponsive for over a minute. Patient subsequently was transferred to emergency room for further evaluation and management. Upon evaluation vital signs were stable. Laboratory work-up revealed no leukocytosis , stable hemoglobin and hematocrit. Stable electrolytes. Troponin 0.047. EKG revealed normal sinus rhythm, no acute ischemic changes. CT of the brain revealed large area of encephalomalacia , no evidence of acute intracranial pathology. Urinalysis revealed +3 leukocyte esterase, pyuria and many bacteria. Urine toxicology screen was negative. In emergency department patient pancultured , started on empiric antibiotic for UTI and received IV Keppra for possible seizure activity. Patient subsequently admitted for further management. CONSULTANTS: rock cutter Dr. Simms neurologist Dr. Feliz [facility]: Patient admitted to telemetry floor for further evaluation of syncopal episode versus seizure. 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 Echocardiogram demonstrated preserved ejection fraction of 60% with no evidence of wall motion abnormality. Repeated troponin was negative. Telemetry was negative . No evidence of arrhythmia. No cardiac issues were suggested as a cause of syncope. Carotid duplex revealed 50 to 70% stenosis of the right internal carotid artery and occluded left internal carotid artery. EEG performed revealed left greater than right hemispheric dysfunction, in addition focal dysfunction involving the left temporal region. CTA of the intracranial and extracranial cerebral blood vessels was ordered , but was declined by patient's daughter. According to neurologist, the patient's history, neurological examination, laboratory studies, imaging studies and EEG were most consistent with old left frontotemporoparietal infarct related to left internal carotid artery occlusion. In addition, patient had recent episode of loss of consciousness , which was thought to be syncopal. The patient had significant right internal carotid artery stenosis in addition to the left internal carotid artery occlusion. Neurologist recommended evaluation by vascular surgeon. Family was reluctant to surgical evaluation . Keppra was discontinued as the EEG did not reveal any interictal or ictal discharges. Antiplatelet therapy with aspirin and statin continued. Lipid panel was stable. Blood pressure was managed with calcium channel michael and hydralazine, and remained stable. DVT prophylaxis with heparin subcutaneously provided. Pain management was addressed. Bowel regimen instituted. Patient initially started on antibiotics for UTI. Urine culture revealed mixed gram-positive organisms, repeated urine culture revealed lactobacillus species. Patient clinically stabilized and was ready for transfer back to care home facility for continuation of care. FINAL DIAGNOSES: Syncopal episode Carotid artery disease : left internal carotid artery occlusion and significant right internal carotid artery stenosis Cerebrovascular disease with history of old left frontotemporoparietal infarct related to left internal carotid artery occlusion Hypertension Fecal impaction Chronic pain syndrome UTI DISCHARGE MEDICATIONS: See Medication Reconciliation list. DISCHARGE INSTRUCTIONS: Patient was discharged to the care home facility. Follow up with medical doctor at the facility. I have been assigned to dictate discharge summary for this account. I was not involved in the patient's management. Shaneka Roa NP Feb 21, 2019 08:20
--- NOTE | 2019-02-24 23:28 | Coder Physician Query ---
Clarification is required for compliance, coding accuracy, and to reflect severity of illness for this patient Dear ___Wilfredo Date: _02/24/19 ____ Heavy Equipment Field Mechanic/CDS Name: ___Crystal Bauer [facility] Patient admitted to telemetry floor for further evaluation of syncopal episode versus seizure. Neon Molder and neurologist followed. Echocardiogram demonstrated preserved ejection fraction of 60% with no evidence of wall motion abnormality. Repeated troponin was negative. Telemetry was negative . No evidence of arrhythmia. No cardiac issues were suggested as a cause of syncope. Final diagnosis: Syncopal episode Carotid artery disease : left internal carotid artery occlusion and significant right internal carotid artery stenosis Cerebrovascular disease with history of old left frontotemporoparietal infarct related to left internal carotid artery occlusion Please specify the cause of syncope as: [] Dehydration [] Orthostatic Hypotension [] Autonomic Imbalance [] Autonomic Dysfunction [] Psychogenic [] Shock [] Dialysis Disequilibrium Syndrome [] Heat [] Other: [*] Unable to determine Present on Admission: [*] Yes [] No [] Clinically Undetermined Physician signature Date Please also document in your Progress Notes and/or Discharge Summary and indicate if the condition was present on admission. CHASE
== END 2019-02-19 01:30 | DRG 312 ==
LOC: EDBD 11:17 → EDUNIT# 11:17 → EMR 12:10 → 2E 12:15 → EDBEDREQ 14:27
DX: R55 Syncope and collapse (principal); N39.0 Urinary tract infection, site not specified; I69.351 Hemiplegia and hemiparesis following cerebral infarction affecting right dominant side; R56.9 Unspecified convulsions; I65.21 Occlusion and stenosis of right carotid artery; I65.22 Occlusion and stenosis of left carotid artery; I69.320 Aphasia following cerebral infarction; K44.9 Diaphragmatic hernia without obstruction or gangrene; K21.9 Gastro-esophageal reflux disease without esophagitis; Z88.0 Allergy status to penicillin; Z88.8 Allergy status to other drugs, medicaments and biological substances; G89.4 Chronic pain syndrome; R10.9 Unspecified abdominal pain; K56.41 Fecal impaction; E66.9 Obesity, unspecified
CPT/HCPCS: 36415; 70450; 71045; 80053; 80061; 80299; 80307; 81001; 81003; 82607; 82728; 82746; 83036; 83540; 83550; 83735; 83880; 84100; 84443; 84484; 84550; 85025; 85610; 85730; 86140; 87081; 87086; 93005; 93306; 93880; 93882; 94640; 95819; 96365; 96375; 99285